=== PATIENT | female | born 1945 | race Caucasian/White ===

== ENCOUNTER 2021-05-09 07:58 | Outpatient (REF) | payer MEDICARE, SELFPAY ==
--- NOTE | ~2021-05-09 | XR_ITS ---
EXAMINATION: XR LUMBAR SPINE. XR PELVIS. CLINICAL INFORMATION: Lumbago with sciatica COMPARISON: None TECHNIQUE: AP radiograph of the pelvis. 3 views of the lumbar spine FINDINGS: Normal lumbar lordosis with slight anterolisthesis of L4-L5. Moderate degenerative disc disease throughout the lumbar spine and diffuse facet arthropathy. No acute fracture or suspicious bone lesion. Degenerative sclerosis of the pubic symphysis. 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 No fracture. XR/XR pelvis 1-2V IMPRESSION: Moderate multilevel degenerative disc disease of the lumbar spine with grade 1 anterolisthesis of L4-L5 where there is prominent facet arthropathy. Mild to moderate degenerative changes of the sacroiliac joints, hip joints, and pubic symphysis which appears symmetric. No acute osseous abnormality.
--- NOTE | ~2021-05-09 | XR_ITS ---
EXAMINATION: XR LUMBAR SPINE. XR PELVIS. CLINICAL INFORMATION: Lumbago with sciatica COMPARISON: None TECHNIQUE: AP radiograph of the pelvis. 3 views of the lumbar spine FINDINGS: Normal lumbar lordosis with slight anterolisthesis of L4-L5. Moderate degenerative disc disease throughout the lumbar spine and diffuse facet arthropathy. No acute fracture or suspicious bone lesion. Degenerative sclerosis of the pubic symphysis. 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 No fracture. XR/XR lumbar spine 2-3V IMPRESSION: Moderate multilevel degenerative disc disease of the lumbar spine with grade 1 anterolisthesis of L4-L5 where there is prominent facet arthropathy. Mild to moderate degenerative changes of the sacroiliac joints, hip joints, and pubic symphysis which appears symmetric. No acute osseous abnormality.
[2021-05-09 08:21] LABS: MANUAL DIFF FLAG NO
[2021-05-09 08:55] LABS: Basophils Absolute Auto 0.1 X10*3/uL (0.0-0.2); Basophils Percent Auto 0.6 % (0-2); Eosinophils Absolute Auto 0.1 X10*3/uL (0.0-0.4); Eosinophils Percent Auto 1.7 % (0-4); Hematocrit 42.2 % (37.0-47.0); Hemoglobin 13.7 g/dl (12.0-16.0); Imm Gran Abs Auto 0.04 X10*3/uL (0.00-0.03); Imm Gran Pct Auto 0.5 % (0.0-0.4); Lymphocytes Absolute Auto 1.7 X10*3/uL (1.2-4.9); Lymphocytes Percent Auto 22.1 % (20-40); Mean Corpuscular HGB Conc 32.5 g/dl (31.0-35.0); Mean Corpuscular Volume 95.5 fL (80.0-98.0); Mean Platelet Volume 10.3 fL (9.4-12.3); Monocytes Absolute Auto 0.7 X10*3/uL (0.1-1.2); Neutrophils Absolute Auto 5.1 x10*3/uL (2.0-8.3); Neutrophils Percent Auto 66.1 % (45-73); Platelet Count 228 X10*3/uL (160-400); Red Blood Count 4.42 X10*6/uL (4.20-5.50); Red Cell Distribution Width 11.8 % (11.0-16.0); White Blood Count 7.7 X10*3/uL (4.8-10.8)
[2021-05-09 09:32] LABS: Alanine Aminotransferase 17 U/L (0-31); Albumin Level 4.3 g/dL (3.5-5.0); Alkaline Phosphatase 67 U/L (39-117); Anion Gap 12 (12-20); Aspartate Amino Transferase 20 U/L (5-31); Bilirubin Total 0.3 mg/dL (0.0-1.0); Blood Urea Nitrogen 18 mg/dL (9-16); Calcium 8.7 mg/dL (8.4-10.2); Carbon Dioxide 29 mmol/L (22-29); Chloride 101 mmol/L (96-108); Cholesterol 218 mg/dL; Estimated Glomerular Filt Rate > 60; Glucose Random 87 mg/dL (60-115); HDL Cholesterol 55 mg/dL; LDL Cholesterol Calculated 138 mg/dl; Potassium 4.6 mmol/L (3.3-5.1); Sodium 137 mmol/L (135-145); Total Protein 7.1 g/dL (6.5-8.0); Triglycerides 129 mg/dL
[2021-05-09 09:44] LABS: Free T4 (Free Thyroxine) 1.35 ng/dL (0.71-1.85); Thyroid Stimulating Hormone 1.32 uIU/mL (0.32-4.0); Vitamin D 25-OH Total 28.4 ng/mL (>30)
[2021-05-09 11:06] LABS: Erythrocyte Sedimentation Rate 12 MM/HR (0-20)
== END 2021-05-09 07:59 | disposition home or self-care (01) ==
LOC: HO.XRAY 07:58
PROVIDERS: PCP Internal Medicine; Visit Provider Internal Medicine
DX: E78.00 Pure hypercholesterolemia, unspecified (principal); E03.9 Hypothyroidism, unspecified; E55.9 Vitamin D deficiency, unspecified; I10 Essential (primary) hypertension; M54.42 Lumbago with sciatica, left side
CPT/HCPCS: 36415; 72100; 72170; 80053; 80061; 82306; 84439; 84443; 85025; 85652

== ENCOUNTER 2021-05-11 10:16 | Outpatient (REF) | payer MEDICARE, SELFPAY ==
[2021-05-11 10:26] LABS: Appearance Urine CLEAR; Color Urine YELLOW; Glucose Urine UA NEG (NEG); Leukocyte Esterase Urine NEG (NEG); Nitrite Urine NEG (NEG); PH 5.5 (5.0-8.0); UACC Culture Trigger NO; Urine Blood 1+ (NEG); Urine Ketones NEG (NEG); Urine Protein NEG (NEG-TRACE)
[2021-05-11 10:36] LABS: RBC Urine 0-2 /HPF (0); Squamous Epithelial Cell Urine TRACE /LPF; WBC Urine 0 /HPF (0-4)
== END 2021-05-11 10:17 | disposition home or self-care (01) ==
LOC: HO.LNP 10:16
PROVIDERS: Visit Provider Internal Medicine
DX: R03.0 Elevated blood-pressure reading, without diagnosis of hypertension (principal)
CPT/HCPCS: 81001

== ENCOUNTER 2022-09-09 06:21 | Outpatient (REF) | payer MEDICARE, SELFPAY ==
--- NOTE | ~2022-09-09 | XR_ITS ---
EXAMINATION: XR ABDOMEN COMPLETE CLINICAL INDICATION: R19.5 - Other fecal abnormalities COMPARISON: Lumbar and pelvic radiographs 05/09/2021. TECHNIQUE: The abdomen is imaged in 3 views, supine AP x2, upright AP. FINDINGS: There is no obstruction, differential air-fluid levels, or free air. No gaseous dilatation of bowel or abnormal collections of gas. There is moderate stool in the proximal to mid right colon. Lung bases are clear. There are no visible urinary tract calculi. Degenerative changes are present lumbosacral spine and hips. Mild osteitis pubis. XR/XR abdomen 3V IMPRESSION: Moderate stool proximal to mid right colon. No obstruction or abnormal collections of gas.
[2022-09-09 06:34] LABS: MANUAL DIFF FLAG NO
[2022-09-09 07:59] LABS: Basophils Absolute Auto 0.1 X10*3/uL (0.0-0.2); Basophils Percent Auto 0.8 % (0-2); Eosinophils Absolute Auto 0.2 X10*3/uL (0.0-0.4); Eosinophils Percent Auto 2.4 % (0-4); Hematocrit 44.3 % (37.0-47.0); Hemoglobin 14.5 g/dl (12.0-16.0); Imm Gran Abs Auto 0.02 X10*3/uL (0.00-0.03); Imm Gran Pct Auto 0.3 % (0.0-0.4); Lymphocytes Absolute Auto 2.3 X10*3/uL (1.2-4.9); Lymphocytes Percent Auto 37.3 % (20-40); Mean Corpuscular HGB Conc 32.7 g/dl (31.0-35.0); Mean Corpuscular Hemoglobin 31.7 pg (27.0-33.0); Mean Corpuscular Volume 96.7 fL (80.0-98.0); Mean Platelet Volume 10.2 fL (9.4-12.3); Monocytes Absolute Auto 0.5 X10*3/uL (0.1-1.2); Monocytes Percent Auto 7.5 % (2-11); Neutrophils Absolute Auto 3.2 x10*3/uL (2.0-8.3); Neutrophils Percent Auto 51.7 % (45-73); Platelet Count 219 X10*3/uL (160-400); Red Blood Count 4.58 X10*6/uL (4.20-5.50); Red Cell Distribution Width 11.8 % (11.0-16.0); White Blood Count 6.2 X10*3/uL (4.8-10.8)
[2022-09-09 08:01] LABS: Appearance Urine Clear; Color Urine Yellow; Glucose Urine UA Negative (Negative); Leukocyte Esterase Urine Small (1+) (Negative); Nitrite Urine Negative (Negative); Specific Gravity - Urine 1.015 (1.005-1.025); UMIC TRIGGER UACC YES; Urine Blood Moderate (2+) (Negative); Urine Ketones Negative (Negative); Urine Protein Negative (Neg-Trace)
[2022-09-09 08:16] LABS: Bacteria Urine None Seen (None Seen); Hyaline Casts Urine 0-2 /LPF (0-2); RBC Urine >20 /HPF (0-2); Squamous Epithelial Cell Urine 0-2 /HPF (0-2); UACC Culture Trigger YES; WBC Urine 0-5 /HPF (0-5)
[2022-09-09 08:40] LABS: Alanine Aminotransferase 12 U/L (0-31); Albumin Level 4.1 g/dL (3.5-5.0); Alkaline Phosphatase 69 U/L (39-117); Anion Gap 12 (12-20); Aspartate Amino Transferase 21 U/L (5-31); Bilirubin Total 0.5 mg/dL (0.0-1.0); Blood Urea Nitrogen 13 mg/dL (9-16); Calcium 9.1 mg/dL (8.4-10.2); Carbon Dioxide 31 mmol/L (22-29); Chloride 103 mmol/L (96-108); Cholesterol 229 mg/dL; Estimated Glomerular Filt Rate > 60; Glucose Fasting 83 mg/dL (60-99); HDL Cholesterol 58 mg/dL; LDL Cholesterol Calculated 153 mg/dl; Potassium 4.1 mmol/L (3.3-5.1); Sodium 142 mmol/L (135-145); Total Protein 6.6 g/dL (6.5-8.0); Triglycerides 91 mg/dL
[2022-09-09 09:00] LABS: Free T4 (Free Thyroxine) 1.35 ng/dL (0.71-1.85); Thyroid Stimulating Hormone 0.82 uIU/mL (0.32-4.0); Vitamin D 25-OH Total 38.3 ng/mL (>30)
== END 2022-09-09 06:22 | disposition home or self-care (01) ==
LOC: HO.LAB 06:21
PROVIDERS: PCP Internal Medicine; Visit Provider Internal Medicine
DX: E03.9 Hypothyroidism, unspecified (principal); E78.00 Pure hypercholesterolemia, unspecified; R03.0 Elevated blood-pressure reading, without diagnosis of hypertension; E55.9 Vitamin D deficiency, unspecified; R14.0 Abdominal distension (gaseous); R19.5 Other fecal abnormalities; R82.90 Unspecified abnormal findings in urine
CPT/HCPCS: 36415; 74021; 80053; 80061; 81001; 81003; 82306; 84439; 84443; 85025; 87086

== ENCOUNTER → 2022-10-24 08:50 | Outpatient (BNVA) | payer MEDICARE, SELFPAY | PROVIDERS: PCP Internal Medicine; Visit Provider Nurse Practitioner Family | DX: Z12.11 Encounter for screening for malignant neoplasm of colon (principal); K59.01 Slow transit constipation | CPT/HCPCS: 99202 ==

== ENCOUNTER 2022-12-13 17:31 | Outpatient (REF) | payer MEDICARE, SELFPAY | END 2022-12-13 17:32 | disposition home or self-care (01) | LOC: HO.LNP 17:31 | PROVIDERS: Visit Provider Internal Medicine | DX: N39.0 Urinary tract infection, site not specified (principal); R30.0 Dysuria | CPT/HCPCS: 87086; 87088; 87186 ==

== ENCOUNTER 2023-03-21 13:09 | Outpatient (AMB) | payer MEDICARE, SELFPAY ==
[2023-03-21 13:12] VITALS: BP 132/84; PULSE 81; O2SAT 97; BMI 24.7
--- NOTE | 2023-03-21 13:12 | MHC.PC.OV ---
Vital Signs 03/21/23 13:12 Height 5 ft 4 in Weight 144 lb BMI 24.7 BP 132/84 Blood Pressure Location Lt brachial Position Sitting Pulse 81 Pulse Source Pulse Oximeter Pulse Oximetry (%) 97 Oxygen Delivery Method Room Air Intake Visit Reasons: follow up/colonoscopy Irs Agent Required: No Accompanied by: Self / Same As Patient Allergies codeine [CODEINE] Adverse Reaction (Intermediate, Verified 03/21/23 14:09) NAUSEA & VOMITING Medication List - Last Reconciled 03/21/23 by Saúl Del Castillo MD bisacodyl (Dulcolax (bisacodyl)) 10 mg (2 x 5 mg) PO ONCE 1 day cholecalciferol (vitamin D3) 50 mcg PO DAILY metronidazole 0.75% 1 appl topical BID 10 days polyethylene glycol 3350 (Miralax) 238 grams PO ONCE 1 day psyllium husk (Metamucil) 0.5 tbsp PO DAILY Synthroid (levothyroxine) 112 mcg PO DAILY 90 days NS Tobacco use date assessed: 03/21/23 Fall risk assessment: No Falls in past year Last assessed Fall Risk: 03/21/23 Dental Screening Dental Screen Date: 03/21/23 Did you have a dental visit in the last 12 months?: Yes Did you have a dental problem in the last 6 months where you did not have access to dental care?: No Was dental information given to patient?: Patient has dentist HPI follow up/colonoscopy HPI Details Patient comes in today mainly to seek help and clarification of what she feels are very confusing instructions for her colonoscopy prep for 04/17/2023 States that the instructions she was given appear to start 1 week before her procedure date She started reading the instructions and finds all of them too confusing and anxiety-inducing and as a result, cannot seem to understand that most of the instructions that started a week before are mostly recommendations on how to start adjusting her diet gradually in preparation for her procedure and that the actual prep (medications) are not to be taken until the day before her procedure She appears quite upset and anxious and states that she does not remember having to do this much when she last had her procedure over 20 years ago and is even considering just canceling the colonoscopy itself States that she even tried calling around to different gastroenterologists in the area and asked about their prep procedure and found out that none of them were this complicated States that she is still experiencing recurrent constipation and on and off left-sided abdominal pain She denies any fever, headaches or dizziness Denies any chest pains, no SOB No nausea/vomiting and denies any acute urinary symptoms PFSH Medical History White coat syndrome without hypertension Left-sided low back pain with sciatica Overweight (BMI 25.0-29.9) Elevated blood pressure reading Pure hypercholesterolemia Acquired hypothyroidism Surgical History Hx of colonoscopy History of section Family History Father No problems noted. Mother No problems noted. Social History Housing: House Alcohol intake: never Patient Tobacco Use Status: Never used Tobacco e-Cigarette/Vaping Use: Never Used Second Hand Smoke Exposure: No service: No Current occupational status: retired Cognitive needs: No Hearing needs: No Vision needs: Yes Questionnaire PHQ-9 Over the last 2 weeks, how often have you been bothered by any of the following problems? 1. Little interest or pleasure in doing things: not at all 2. Feeling down, depressed, or hopeless: not at all 3. Trouble falling or staying asleep, or sleeping too much: not at all 4. Feeling tired or having little energy: not at all 5. Poor appetite or overeating: not at all 6. Feeling bad about yourself - or that you are a failure or have let yourself or your family down: not at all 7. Trouble concentrating on things, such as reading the newspaper or watching television: not at all 8. Moving or speaking so slowly that other people could have noticed. Or the opposite - being so fidgety or restless that you have been moving around a lot more than usual: not at all 9. Thoughts that you would be better off or of hurting yourself in some way: not at all Total score: 0 Depression Screening Interpretation: Negative Depression Screening Done: Yes 60728 - PHQ-9 Billing: Yes Source: Developed by Drs. Arnoldo Snider, Marcus Lisa and colleagues, with an educational maryam from [employer]. Thrive Questionnaire Date Thrive assessed: 03/21/23 I am a: Patient What is your living situation today?: I have a steady place to live Within the past 12 months, did the food you bought not last and you didn't have the money to get more?: Never true Within the past 12 months, did you worry whether your food would run out before you got money to buy more?: Never true Do you have trouble paying for medicines?: No Do you have trouble getting transportation to medical appointments?: No Do you have trouble paying your heating and electricity bill?: No Do you have trouble taking care of your child, family member or friend?: No Do you have trouble with day-to-day activities such as bathing, preparing meals, shopping, managing finances, etc.?: No Are you currently unemployed and looking for a job?: No Are you interested in more education?: No Please select the resources that you would like help with: None Currently or been in a relationship where the following occur: no concerns reported AUDIT C Alcohol Use Questionnaire (AUDIT-C) 1. How often do you have a drink containing alcohol?: Never 3. How often do you have six or more drinks on one occasion?: Never Total Score: 0 Score Reviewed/Action Taken: Yes QUINTIN-7 AMB Questionnaire QUINTIN-7 Date QUINTIN - 7 assessed: 03/21/23 Feeling nervous, anxious, or on edge: 0 = Not at all Not being able to stop or control worryin = Not at all Worrying too much about different things: 0 = Not at all Trouble relaxin = Not at all Being so restless that it is hard to sit still: 0 = Not at all Becoming easily annoyed or irritable: 0 = Not at all Feeling afraid as if something awful might happen: 0 = Not at all Total QUINTIN-7 score (0-4 normal; 5-9 mild; 10-14 moderate; 15-21 severe): 0 Source: Developed by Drs. Arnoldo Snider, Marcus Lisa and colleagues, with an educational maryam from [employer]. Review of Systems Const Denies fever(s) and Denies headache(s) ENT Denies dysphagia, Denies dizziness, Denies headache(s), Denies odynophagia and Denies sore throat Card Denies chest pain and Denies dyspnea Resp Denies cough and Denies dyspnea GI Reports abdominal pain (on and off, mostly on the left side), Reports constipation, Denies dysphagia, Denies heartburn, Denies diarrhea, Denies nausea, Denies odynophagia and Denies vomiting Denies difficulty voiding, Denies nocturia and Denies dysuria Neuro Denies dizziness and Denies headache(s) Psych Reports anxiety Physical exam (Primary Care) Vital Signs: Last Vital Signs Pulse 81 03/21/23 13:12 BP 132/84 03/21/23 13:12 Pulse Ox 97 03/21/23 13:12 Oxygen Delivery Method Room Air 03/21/23 13:12 BMI result Body Mass Index 24.7 Tobacco/Smoking Status: Tobacco use Status Tobacco use date assessed 03/21/23 03/21/23 13:20 Patient Tobacco Use Status Never used Tobacco 03/21/23 13:20 e-Cigarette/Vaping Use Never Used 03/21/23 13:20 PHQ-9: PHQ-9 Score PHQ-9: Total score 0 03/21/23 13:20 Depression Screening Interpretation: Negative Thrive Assessment: Date of Thrive Assessment Date Thrive assessed 03/21/23 03/21/23 13:20 Currently or been in a relationship where the following occur: no concerns reported Const General: no acute distress and alert Neck Neck: Yes no lymphadenopathy and Yes supple Resp Auscultation: clear to auscultation bilaterally, no rales and no wheezes Cardio Rate: regular rate Rhythm: regular rhythm Heart sounds: no murmurs GI Palpation (GI): Soft to palpation, Tenderness to palpation present (GI) (mild, mostly on the left side of the abdomen) and no guarding Auscultation: normal bowel sounds Extrem General: Yes no clubbing, cyanosis or edema Assessment and Plan Assessment & Plan (1) Left sided abdominal pain: Code(s): R10.9 - Unspecified abdominal pain Plan: She is advised again that her recurrent abdominal pain is most likely due to constipation Abdominal x-rays done a few months ago revealed (+) moderate stool in the colon Is encouraged to increase her oral fluids and dietary fiber (2) Change in stool caliber: Code(s): R19.5 - Other fecal abnormalities Plan: She is currently scheduled for colonoscopy on 04/17/23 and presently appears very upset, flustered and anxious about what she feels are very confusing and difficult to understand prep instructions that starts out about 1 week before her procedure Have discussed this with patient but she continues to appear very flustered and upset as to why this has to start 1 week before her colonoscopy when some of the other specialists she asked regarding this do not seem to have this issue and all of their prep instructions only start the day before Have advised patient that I will help her simplify this then to help came her nerves down - advised that the only things she needs to remember then are: 1. Nothing to eat or drink starting at 12 noon of the day before the procedure except for clear fluids (including water and clear broth) and jello 2. Start taking 2 tablets of Dulcolax at 2 pm that afternoon, then start drinking 1 glass of the Miralax prep every 30 to 60 minutes until the bottle is completely finished 3. Present to the hospital the next day for her colonoscopy. Is reminded to make sure she has a jitney driver (she cannot drive herself) and to arrive a little earlier to provide some time to fill out any necessary paperworks Plan Discussed that hopefully, simplifying her instructions this way will help resolve a lot of the anxiety, frustration and apparent irritation that she has been harboring over the past week or so about this and that she can then proceed with her colonoscopy as planned smoothly Follow up as scheduled in May 2023 Coding Level of Care Code Est Pt Level 3 (21021) Diagnoses Left sided abdominal pain R10.9 Change in stool caliber R19.5
== END 2023-03-21 14:10 | disposition home or self-care (01) ==
PROVIDERS: PCP Internal Medicine; Visit Provider Internal Medicine
DX: R10.9 Unspecified abdominal pain (principal); R19.5 Other fecal abnormalities
CPT/HCPCS: 99213

== ENCOUNTER 2023-05-15 06:59 | Outpatient (REF) | payer MEDICARE, SELFPAY ==
[2023-05-15 07:19] LABS: MANUAL DIFF FLAG NO
[2023-05-15 07:48] LABS: Basophils Absolute Auto 0.1 X10*3/uL (0.0-0.2); Basophils Percent Auto 0.8 % (0-2); Eosinophils Absolute Auto 0.1 X10*3/uL (0.0-0.4); Eosinophils Percent Auto 1.7 % (0-4); Hematocrit 43.7 % (37.0-47.0); Hemoglobin 14.2 g/dl (12.0-16.0); Imm Gran Abs Auto 0.03 X10*3/uL (0.00-0.03); Imm Gran Pct Auto 0.5 % (0.0-0.4); Lymphocytes Absolute Auto 1.9 X10*3/uL (1.2-4.9); Lymphocytes Percent Auto 29.1 % (20-40); Mean Corpuscular HGB Conc 32.5 g/dl (31.0-35.0); Mean Corpuscular Volume 95.4 fL (80.0-98.0); Mean Platelet Volume 9.9 fL (9.4-12.3); Monocytes Absolute Auto 0.5 X10*3/uL (0.1-1.2); Neutrophils Percent Auto 59.9 % (45-73); Platelet Count 225 X10*3/uL (160-400); Red Blood Count 4.58 X10*6/uL (4.20-5.50); Red Cell Distribution Width 11.8 % (11.0-16.0); White Blood Count 6.6 X10*3/uL (4.8-10.8)
[2023-05-15 07:50] LABS: Appearance Urine Clear; Color Urine Yellow; Glucose Urine UA Negative (Negative); Leukocyte Esterase Urine Moderate (2+) (Negative); Nitrite Urine Negative (Negative); PH 6.5 (5.0-9.0); UMIC TRIGGER UACC YES; Urine Blood Moderate (2+) (Negative); Urine Ketones Negative (Negative); Urine Protein Negative (Neg-Trace)
[2023-05-15 07:59] LABS: Bacteria Urine None Seen (None Seen); Hyaline Casts Urine 0-2 /LPF (0-2); Squamous Epithelial Cell Urine 0-2 /HPF (0-2); UACC Culture Trigger YES
[2023-05-15 08:32] LABS: Alanine Aminotransferase 14 U/L (0-31); Albumin Level 4.1 g/dL (3.5-5.0); Alkaline Phosphatase 65 U/L (39-117); Anion Gap 12 (12-20); Aspartate Amino Transferase 21 U/L (5-31); Bilirubin Total 0.4 mg/dL (0.0-1.0); Blood Urea Nitrogen 15 mg/dL (9-16); Calcium 9.4 mg/dL (8.4-10.2); Carbon Dioxide 30 mmol/L (22-29); Chloride 102 mmol/L (96-108); Cholesterol 233 mg/dL (<200); Estimated Glomerular Filt Rate > 60; Glucose Fasting 93 mg/dL (60-99); HDL Cholesterol 64 mg/dL (>40); LDL Cholesterol Calculated 157 mg/dL (<100); Potassium 3.8 mmol/L (3.3-5.1); Sodium 140 mmol/L (135-145); Total Protein 7.3 g/dL (6.5-8.0); Triglycerides 63 mg/dL (<150)
[2023-05-15 08:38] LABS: Free T4 (Free Thyroxine) 1.15 ng/dL (0.71-1.85); Vitamin D 25-OH Total 36.8 ng/mL (>30)
[2023-05-16 09:10] LABS: Urine Cytology See Pathology rpt
== END 2023-05-15 07:00 | disposition home or self-care (01) ==
LOC: HO.LAB 06:59
PROVIDERS: PCP Internal Medicine; Visit Provider Internal Medicine
DX: E03.9 Hypothyroidism, unspecified (principal); I10 Essential (primary) hypertension; E78.00 Pure hypercholesterolemia, unspecified; E55.9 Vitamin D deficiency, unspecified; R31.1 Benign essential microscopic hematuria
CPT/HCPCS: 36415; 80053; 80061; 81001; 82306; 84439; 84443; 85025; 87086; 88112

== ENCOUNTER 2023-05-20 09:19 | Outpatient (AMB) | payer MEDICARE, SELFPAY ==
[2023-05-20 09:21] VITALS: BP 152/90; PULSE 83; O2SAT 97; BMI 24.7
--- NOTE | 2023-05-20 09:21 | MHC.PC.OV ---
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 Accompanied by: Self / Same As Patient Allergies codeine [CODEINE] Adverse Reaction (Intermediate, Verified 05/20/23 10:02) NAUSEA & VOMITING Medication List - Last Reconciled 05/20/23 by Saúl Del Castillo MD bisacodyl (Dulcolax (bisacodyl)) 10 mg (2 x 5 mg) PO ONCE 1 day cholecalciferol (vitamin D3) 50 mcg PO DAILY metronidazole 0.75% 1 appl topical BID 10 days polyethylene glycol 3350 (Miralax) 238 grams PO ONCE 1 day psyllium husk (Metamucil) 0.5 tbsp PO DAILY Synthroid (levothyroxine) 112 mcg PO DAILY 90 days NS Tobacco use date assessed: 05/20/23 Fall risk assessment: No Falls in past year Last assessed Fall Risk: 05/20/23 Dental Screening Dental Screen Date: 05/20/23 Did you have a dental visit in the last 12 months?: Yes Did you have a dental problem in the last 6 months where you did not have access to dental care?: No Was dental information given to patient?: Patient has dentist HPI hyperlipidemia, hypothyroidism HPI Details Patient comes in today for her follow up visit States that she has been experiencing frequent/recurrent nasal and sinus congestion for the past few weeks States that she even went to a walk-in clinic a couple of weeks ago for the same complaints and was prescribed some Abx (Amoxicillin) and Cetirizine - states that she is almost finished with her Abx but does not feel that her Rx have helped at all Notes (+) sore throat at times but denies any fever - states that she gargles with some warm salt water when her throat starts acting up and finds that the salt water gargle helps a lot Denies any headaches or dizziness Denies any chest pains, no SOB No nausea/vomiting, no abdominal pain No change in bowel habits noted Had her follow up labs done last week - to discuss her results [facility] Medical History (Updated 05/20/23 @ 10:20 by Saúl Del Castillo MD) White coat syndrome without hypertension Left-sided low back pain with sciatica Overweight (BMI 25.0-29.9) Pure hypercholesterolemia Acquired hypothyroidism Surgical History Hx of colonoscopy History of section Family History Father No problems noted. Mother No problems noted. Social History Housing: House Alcohol intake: never Patient Tobacco Use Status: Never used Tobacco e-Cigarette/Vaping Use: Never Used Second Hand Smoke Exposure: No service: No Current occupational status: retired Cognitive needs: No Hearing needs: No Vision needs: Yes Questionnaire PHQ-9 Over the last 2 weeks, how often have you been bothered by any of the following problems? 1. Little interest or pleasure in doing things: not at all 2. Feeling down, depressed, or hopeless: not at all 3. Trouble falling or staying asleep, or sleeping too much: not at all 4. Feeling tired or having little energy: not at all 5. Poor appetite or overeating: not at all 6. Feeling bad about yourself - or that you are a failure or have let yourself or your family down: not at all 7. Trouble concentrating on things, such as reading the newspaper or watching television: not at all 8. Moving or speaking so slowly that other people could have noticed. Or the opposite - being so fidgety or restless that you have been moving around a lot more than usual: not at all 9. Thoughts that you would be better off or of hurting yourself in some way: not at all Total score: 0 Depression Screening Interpretation: Negative Depression Screening Done: Yes 25769 - PHQ-9 Billing: Yes Source: Developed by Drs. Arnoldo Snider, Kera Alonzo, Marcus Mullen and colleagues, with an educational maryam from [employer]. Thrive Questionnaire Date Thrive assessed: 05/20/23 I am a: Patient What is your living situation today?: I have a steady place to live Within the past 12 months, did the food you bought not last and you didn't have the money to get more?: Never true Within the past 12 months, did you worry whether your food would run out before you got money to buy more?: Never true Do you have trouble paying for medicines?: No Do you have trouble getting transportation to medical appointments?: No Do you have trouble paying your heating and electricity bill?: No Do you have trouble taking care of your child, family member or friend?: No Do you have trouble with day-to-day activities such as bathing, preparing meals, shopping, managing finances, etc.?: No Are you currently unemployed and looking for a job?: No Are you interested in more education?: No Please select the resources that you would like help with: None Currently or been in a relationship where the following occur: no concerns reported AUDIT C Alcohol Use Questionnaire (AUDIT-C) 1. How often do you have a drink containing alcohol?: Never 3. How often do you have six or more drinks on one occasion?: Never Total Score: 0 Score Reviewed/Action Taken: Yes QUINTIN-7 AMB Questionnaire QUINTIN-7 Date QUINTIN - 7 assessed: 05/20/23 Feeling nervous, anxious, or on edge: 0 = Not at all Not being able to stop or control worryin = Not at all Worrying too much about different things: 0 = Not at all Trouble relaxin = Not at all Being so restless that it is hard to sit still: 0 = Not at all Becoming easily annoyed or irritable: 0 = Not at all Feeling afraid as if something awful might happen: 0 = Not at all Total QUINTIN-7 score (0-4 normal; 5-9 mild; 10-14 moderate; 15-21 severe): 0 Source: Developed by Drs. Arnoldo Snider, Kera Alonzo, Marcus Mullen and colleagues, with an educational maryam from [employer]. Review of Systems Const Denies chills, Denies fever(s) and Denies headache(s) ENT Denies dysphagia, Denies dizziness, Denies otalgia, Denies headache(s), Reports nasal congestion (recurrent/frequent lately), Reports nasal discharge (at times, mostly clear), Denies neck pain, Denies odynophagia, Denies sinus pain, Reports sinus pressure (at times, mild) and Reports sore throat (on and off, mostly mild) Card Denies chest pain and Denies dyspnea Resp Denies chest congestion, Denies cough, Denies dyspnea and Denies wheezing GI Denies abdominal pain, Reports constipation (on and off), Denies dysphagia, Denies heartburn, Denies diarrhea, Denies nausea, Denies odynophagia and Denies vomiting Denies difficulty voiding, Denies nocturia, Denies dysuria and Denies urinary urgency Musc Denies back pain, Denies arthralgias and Denies neck pain Skin/Breast Denies rash Neuro Denies dizziness and Denies headache(s) Psych Reports anxiety Aller/Immun Denies wheezing Physical exam (Primary Care) Vital Signs: Last Vital Signs Pulse 83 05/20/23 09:21 BP 152/90 H 05/20/23 09:21 Pulse Ox 97 05/20/23 09:21 Oxygen Delivery Method Room Air 05/20/23 09:21 BMI result Body Mass Index 24.7 Tobacco/Smoking Status: Tobacco use Status Tobacco use date assessed 05/20/23 05/20/23 09:28 Patient Tobacco Use Status Never used Tobacco 05/20/23 09:28 e-Cigarette/Vaping Use Never Used 05/20/23 09:28 PHQ-9: PHQ-9 Score PHQ-9: Total score 0 05/20/23 09:28 Depression Screening Interpretation: Negative Thrive Assessment: Date of Thrive Assessment Date Thrive assessed 05/20/23 05/20/23 09:28 Currently or been in a relationship where the following occur: no concerns reported Const General: no acute distress and alert HENMT Ears: TM's normal bilaterally and EAC's normal General nose exam: Nasal discharge present (minimal) clear Face and sinus: Yes sinuses nontender Throat: Yes posterior oropharynx normal and Yes tonsils normal Neck Neck: Yes no lymphadenopathy and Yes supple Resp Auscultation: clear to auscultation bilaterally, no rales and no wheezes Cardio Rate: regular rate Rhythm: regular rhythm Heart sounds: no murmurs GI Palpation (GI): Soft to palpation, nontender and no guarding Auscultation: normal bowel sounds Skin Rashes: no rashes Extrem General: Yes no clubbing, cyanosis or edema Results Reviewed Results Reviewed: Laboratory Tests 11/30/23 11/30/23 07:16 07:18 WBC 6.6 Hgb 14.2 Hct 43.7 Plt Count 225 Sodium 140 Potassium 3.8 Creatinine 0.73 Estimated GFR > 60 Fasting Glucose 93 Calcium 9.4 AST 21 ALT 14 Triglycerides 63 Cholesterol 233 H LDL Cholesterol, Calc 157 H HDL Cholesterol 64 25-OH Vitamin D Total 36.8 TSH 1.70 Free T4 1.15 Ur Specific Johnson 1.020 Urine Protein Negative Urine Glucose (UA) Negative Urine Blood Moderate (2+) H Assessment and Plan Assessment & Plan (1) White coat syndrome without hypertension: Code(s): R03.0 - Elevated blood-pressure reading, without diagnosis of hypertension Plan: Her BP in the office today is again elevated but her home BP log shows systolic BP readings ranging from 113 mm to 131 mm, consistent with white coat hypertension Reinforced low sodium diet Patient is instructed to continue monitoring her blood pressure regularly (2) Pure hypercholesterolemia: Code(s): E78.00 - Pure hypercholesterolemia, unspecified Plan: Results of her labs done last week reviewed and discussed with patient - cautioned that her cholesterol levels were still elevated and have increased from her previous numbers (LDL is at 157, total cholesterol is at 233) Reinforced low cholesterol diet - patient states that she previously switched over to a Mediterranean-type diet to hopefully help her get her cholesterol numbers down significantly but admits to poor compliance with her diet lately and she will try to get back on track with her diet Will recheck her labs and fasting lipids in 6 months for follow-up (3) Acquired hypothyroidism: Code(s): E03.9 - Hypothyroidism, unspecified Plan: TFTs were normal on her recent labs Continue Synthroid 112 mcg QD Will recheck her TFTs in 6 months for follow up (4) Left-sided low back pain with sciatica: Code(s): M54.42 - Lumbago with sciatica, left side Qualifiers: Chronicity: unspecified Sciatica laterality: sciatica of left side Qualified Code(s): M54.42 - Lumbago with sciatica, left side Plan: Lumbar spine x-rays done back in April 2021 revealed (+) 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 Have recommended referral to physical therapy for her left-sided sciatica and discussed potential need for referral to neurosurgery but she declined referrals previously and stated that she will call for referrals when she feels she needs them Reinforced activity and weight lifting restrictions - states that her low back pain has actually subsided since and are not bothering her too much lately (5) Rhinitis: Code(s): J31.0 - Chronic rhinitis Qualifiers: Rhinitis type: unspecified Qualified Code(s): J31.0 - Chronic rhinitis Plan: Advised that her recent nasal and sinus symptoms are most likely due to rhinitis, which is from a combination of indoor allergies as well as cold-air rhinitis that is common at this time of year Advised that she can continue on OTC Cetirizine 10 mg QD if she wants but will also her her try Fluticasone 50 mcg nasal spray QD PRN - advised that she can use both oral Cetirizine and her nasal spray if she wants to Have also advised her to continue using OTC Saline nasal spray PRN, which she is already using Plan Follow up in 6 months Orders: Orders Complete Blood Count Auto Diff 6 Months I10 - Essential (primary) hypertension Comprehensive [place]. Panel Fast 6 Months E78.00 - Pure hypercholesterolemia, unspecified Lipid Panel 6 Months E78.00 - Pure hypercholesterolemia, unspecified TSH reflex Free T4 6 Months E78.00 - Pure hypercholesterolemia, unspecified UA CC w/rflx Micro + Cult 6 Months R30.0 - Dysuria Vitamin D 25-OH Total 6 Months E55.9 - Vitamin D deficiency, unspecified Medications: New fluticasone propionate 50 mcg/actuation administer into each nostril 2 sprays intranasal DAILY 30 days PRN 16 grams 5RF allergy symptoms Coding Level of Care Code Est Pt Level 4 (18805) Diagnoses White coat syndrome without hypertension R03.0 Pure hypercholesterolemia E78.00 Acquired hypothyroidism E03.9 Left-sided low back pain with left-sided sciatica, unspecified chronicity M54.42 Chronicity: unspecified Sciatica laterality: sciatica of left side Rhinitis, unspecified type J31.0 Rhinitis type: unspecified
== END 2023-05-20 10:13 | disposition home or self-care (01) ==
PROVIDERS: PCP Internal Medicine; Visit Provider Internal Medicine
DX: R03.0 Elevated blood-pressure reading, without diagnosis of hypertension (principal); E78.00 Pure hypercholesterolemia, unspecified; E03.9 Hypothyroidism, unspecified; M54.42 Lumbago with sciatica, left side; J31.0 Chronic rhinitis
CPT/HCPCS: 99214

== ENCOUNTER 2023-10-22 13:43 | Outpatient (AMB) | payer MEDICARE, SELFPAY ==
[2023-10-22 13:43] VITALS: BP 148/74; PULSE 81; O2SAT 97; BMI 25.2
--- NOTE | 2023-10-22 13:43 | MHC.PC.OV ---
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 Allergies codeine [CODEINE] Adverse Reaction (Intermediate, Verified 10/22/23 14:14) NAUSEA & VOMITING Medication List - Last Reconciled 10/22/23 by Saúl Del Castillo MD bisacodyl (Dulcolax (bisacodyl)) 10 mg (2 x 5 mg) PO ONCE 1 day cholecalciferol (vitamin D3) 50 mcg PO DAILY fluticasone propionate 50 mcg/actuation 2 sprays intranasal DAILY PRN 30 days metronidazole 0.75% 1 appl topical BID 10 days polyethylene glycol 3350 (Miralax) 238 grams PO ONCE 1 day psyllium husk (Metamucil) 0.5 tbsp PO DAILY Synthroid (levothyroxine) 112 mcg PO DAILY 90 days NS Tobacco use date assessed: 10/22/23 Fall risk assessment: No Falls in past year Last assessed Fall Risk: 10/22/23 Dental Screening Dental Screen Date: 10/22/23 HPI Sinus HPI Details Patient comes in today complaining of increased nasal and sinus congestion often for the past few weeks now States that she has been taking OTC Mallory lately to help with her perceived allergy symptoms but feels that the Rx is not helping much States that she feels congested all the time, has a recurrent cough for a few weeks now and coughs up yellowish phlegm often Notes that she has also been hoarse at times lately and feels there is some congestion in her throat that she just can't seem to clear up She denies any fever, headaches or dizziness; throat feels slightly sore on and off lately Denies any chest pains, no increased SOB No nausea/vomiting, no abdominal pain No change in bowel habits noted [facility] Medical History White coat syndrome without hypertension Left-sided low back pain with sciatica Overweight (BMI 25.0-29.9) Pure hypercholesterolemia Acquired hypothyroidism Surgical History Hx of colonoscopy History of section Family History Father No problems noted. Mother No problems noted. Social History Housing: House Alcohol intake: never Patient Tobacco Use Status: Never used Tobacco e-Cigarette/Vaping Use: Never Used Second Hand Smoke Exposure: No service: No Current occupational status: retired Cognitive needs: No Hearing needs: No Vision needs: Yes Questionnaire PHQ-9 Over the last 2 weeks, how often have you been bothered by any of the following problems? 1. Little interest or pleasure in doing things: not at all 2. Feeling down, depressed, or hopeless: not at all 3. Trouble falling or staying asleep, or sleeping too much: not at all 4. Feeling tired or having little energy: not at all 5. Poor appetite or overeating: not at all 6. Feeling bad about yourself - or that you are a failure or have let yourself or your family down: not at all 7. Trouble concentrating on things, such as reading the newspaper or watching television: not at all 8. Moving or speaking so slowly that other people could have noticed. Or the opposite - being so fidgety or restless that you have been moving around a lot more than usual: not at all 9. Thoughts that you would be better off or of hurting yourself in some way: not at all Total score: 0 Depression Screening Interpretation: Negative Depression Screening Done: Yes 81688 - PHQ-9 Billing: Yes Source: Developed by Drs. Arnoldo Snider, Kera Alonzo, Marcus Mullen and colleagues, with an educational maryam from [employer]. Thrive Questionnaire Date Thrive assessed: 10/22/23 I am a: Patient What is your living situation today?: I have a steady place to live Within the past 12 months, did the food you bought not last and you didn't have the money to get more?: Never true Within the past 12 months, did you worry whether your food would run out before you got money to buy more?: Never true Do you have trouble paying for medicines?: No Do you have trouble getting transportation to medical appointments?: No Do you have trouble paying your heating and electricity bill?: No Do you have trouble taking care of your child, family member or friend?: No Do you have trouble with day-to-day activities such as bathing, preparing meals, shopping, managing finances, etc.?: No Are you currently unemployed and looking for a job?: No Are you interested in more education?: No Please select the resources that you would like help with: None Currently or been in a relationship where the following occur: no concerns reported THRIVE Score: 0 AUDIT C Alcohol Use Questionnaire (AUDIT-C) 1. How often do you have a drink containing alcohol?: Never 3. How often do you have six or more drinks on one occasion?: Never Total Score: 0 Score Reviewed/Action Taken: Yes QUINTIN-7 AMB Questionnaire QUINTIN-7 Date QUINTIN - 7 assessed: 10/22/23 Source: Developed by Drs. Arnoldo Snider, Kera Alonzo, Marcus Mullen and colleagues, with an educational maryam from [employer]. Review of Systems Const Denies chills, Reports fatigue, Denies fever(s) and Denies headache(s) ENT Denies dysphagia, Denies dizziness, Denies otalgia, Denies headache(s), Reports hoarseness (at times), Reports nasal congestion (frequent), Reports nasal discharge (occasionally; yellowish-tinged often), Denies neck pain, Denies odynophagia, Reports post nasal drip, Reports sinus pressure and Denies sore throat Card Denies chest pain, Denies palpitations and Denies dyspnea Resp Denies chest congestion, Reports cough (on and off; coughs up yellowish-tinged sputum frequently), Denies dyspnea and Denies wheezing GI Denies abdominal pain, Denies constipation, Denies dysphagia, Denies heartburn, Denies diarrhea, Denies nausea, Denies odynophagia and Denies vomiting Denies difficulty voiding, Denies nocturia, Denies dysuria and Denies urinary urgency Musc Denies neck pain Skin/Breast Denies rash Neuro Denies dizziness and Denies headache(s) Endo Reports fatigue and Denies palpitations Aller/Immun Denies wheezing Physical exam (Primary Care) Vital Signs: Last Vital Signs Pulse 81 10/22/23 13:43 BP 148/74 H 10/22/23 13:43 Pulse Ox 97 10/22/23 13:43 Oxygen Delivery Method Room Air 10/22/23 13:43 BMI result Body Mass Index 25.2 Tobacco/Smoking Status: Tobacco use Status Tobacco use date assessed 10/22/23 10/22/23 13:46 Patient Tobacco Use Status Never used Tobacco 10/22/23 13:46 e-Cigarette/Vaping Use Never Used 10/22/23 13:46 Depression Screening Interpretation: Negative Thrive Assessment: Date of Thrive Assessment Date Thrive assessed 10/22/23 10/22/23 13:46 Currently or been in a relationship where the following occur: no concerns reported Const General: no acute distress and alert HENMT Ears: TM's normal bilaterally and EAC's normal General nose exam: Abnormal mucous membranes and turbinates present boggy bilateral Face and sinus: Yes sinuses nontender Throat: Yes tonsils normal (no TP congestion) and Yes posterior oropharynx abnormal ((+) mild erythema) Neck Neck: Yes no lymphadenopathy and Yes supple Thyroid: Thyroid normal Resp Auscultation: clear to auscultation bilaterally, no rales and no wheezes Cardio Rate: regular rate Rhythm: regular rhythm Heart sounds: no murmurs GI Palpation (GI): Soft to palpation and nontender Auscultation: normal bowel sounds General: Yes no CVA tenderness Back/Spine/Pelvis Back: no CVA tenderness Skin Rashes: no rashes Extrem General: Yes no clubbing, cyanosis or edema Assessment and Plan Assessment & Plan (1) Upper respiratory tract infection: Code(s): J06.9 - Acute upper respiratory infection, unspecified Qualifiers: URI type: unspecified URI Qualified Code(s): J06.9 - Acute upper respiratory infection, unspecified Plan: (+) mild sinusitis Will start patient on Amoxicillin 500 mg Q 8 hours x 7 days She is advised to also continue taking her oral antihistamines daily as instructed (2) Allergic rhinitis: Code(s): J30.9 - Allergic rhinitis, unspecified Qualifiers: Allergic rhinitis trigger: unspecified Allergic rhinitis seasonality: unspecified Qualified Code(s): J30.9 - Allergic rhinitis, unspecified Plan: Continue OTC Fexofenadine 180 mg QD PRN but advised that if she finds that her allergy medication is no longer helping as much as it used to, she can try switching from one to another option (can pick between Loratadine 10 mg, Cetirizine 10 mg and Fexofenadine 180 mg) - reassured that all of these are mostly non-drowsy and should have very little effect on her blood pressure She is reminded that she can also try using OTC Fluticasone 50 mcg nasal spray QD PRN as well Continue OTC Saline nasal spray PRN also Plan Follow up as scheduled next month Medications: New amoxicillin 500 mg PO Q8H 7 days 21 tabs 0RF Coding Level of Care Code Est Pt Level 3 (94567) Diagnoses Upper respiratory tract infection, unspecified type J06.9 URI type: unspecified URI Allergic rhinitis, unspecified seasonality, unspecified trigger J30.9 Allergic rhinitis trigger: unspecified Allergic rhinitis seasonality: unspecified
== END 2023-10-22 14:20 | disposition home or self-care (01) ==
PROVIDERS: PCP Internal Medicine; Visit Provider Internal Medicine
DX: J06.9 Acute upper respiratory infection, unspecified (principal); J30.9 Allergic rhinitis, unspecified
CPT/HCPCS: 99213

== ENCOUNTER 2023-11-11 06:17 | Outpatient (REF) | payer MEDICARE, SELFPAY ==
[2023-11-11 06:38] LABS: MANUAL DIFF FLAG NO
[2023-11-11 08:03] LABS: Basophils Absolute Auto 0.1 X10*3/uL (0.0-0.2); Basophils Percent Auto 1.1 % (0-2); Eosinophils Absolute Auto 0.1 X10*3/uL (0.0-0.4); Eosinophils Percent Auto 2.3 % (0-4); Hematocrit 42.2 % (37.0-47.0); Hemoglobin 13.8 g/dl (12.0-16.0); Imm Gran Abs Auto 0.02 X10*3/uL (0.00-0.03); Imm Gran Pct Auto 0.4 % (0.0-0.4); Mean Corpuscular HGB Conc 32.7 g/dl (31.0-35.0); Mean Corpuscular Hemoglobin 31.3 pg (27.0-33.0); Mean Corpuscular Volume 95.7 fL (80.0-98.0); Mean Platelet Volume 10.4 fL (9.4-12.3); Monocytes Absolute Auto 0.6 X10*3/uL (0.1-1.2); Monocytes Percent Auto 9.9 % (2-11); Neutrophils Absolute Auto 2.8 x10*3/uL (2.0-8.3); Neutrophils Percent Auto 50.3 % (45-73); Platelet Count 206 X10*3/uL (160-400); Red Blood Count 4.41 X10*6/uL (4.20-5.50); Red Cell Distribution Width 11.9 % (11.0-16.0); White Blood Count 5.6 X10*3/uL (4.8-10.8)
[2023-11-11 08:04] LABS: Appearance Urine Clear; Color Urine Yellow; Glucose Urine UA Negative (Negative); Leukocyte Esterase Urine Small (1+) (Negative); Nitrite Urine Negative (Negative); Specific Gravity - Urine 1.015 (1.005-1.025); UMIC TRIGGER UACC YES; Urine Blood Moderate (2+) (Negative); Urine Ketones Negative (Negative); Urine Protein Negative (Neg-Trace)
[2023-11-11 08:20] LABS: Bacteria Urine None Seen (None Seen); Hyaline Casts Urine 0-2 /LPF (0-2); RBC Urine 0-2 /HPF (0-2); Squamous Epithelial Cell Urine 0-2 /HPF (0-2); UACC Culture Trigger YES; WBC Urine 0-5 /HPF (0-5)
[2023-11-11 08:41] LABS: Alanine Aminotransferase 14 U/L (0-31); Alkaline Phosphatase 64 U/L (39-117); Anion Gap 12 (12-20); Aspartate Amino Transferase 21 U/L (5-31); Bilirubin Total 0.5 mg/dL (0.0-1.0); Blood Urea Nitrogen 13 mg/dL (9-16); Calcium 9.1 mg/dL (8.4-10.2); Carbon Dioxide 29 mmol/L (22-29); Chloride 104 mmol/L (96-108); Cholesterol 209 mg/dL (<200); Estimated Glomerular Filt Rate > 60; Glucose Fasting 84 mg/dL (60-99); HDL Cholesterol 59 mg/dL (>40); LDL Cholesterol Calculated 137 mg/dL (<100); Sodium 141 mmol/L (135-145); Total Protein 6.9 g/dL (6.5-8.0); Triglycerides 68 mg/dL (<150)
[2023-11-11 08:59] LABS: TSH reflex Free T4 0.93 uIU/mL (0.32-4.0); Vitamin D 25-OH Total 33.1 ng/mL (>30)
== END 2023-11-11 06:18 | disposition home or self-care (01) ==
LOC: HO.LAB 06:17
PROVIDERS: PCP Internal Medicine; Visit Provider Internal Medicine
DX: I10 Essential (primary) hypertension (principal); E55.9 Vitamin D deficiency, unspecified; R30.0 Dysuria; E78.00 Pure hypercholesterolemia, unspecified
CPT/HCPCS: 36415; 80053; 80061; 81001; 81003; 82306; 84443; 85025; 87086

== ENCOUNTER 2023-11-24 10:00 | Outpatient (AMB) | payer MEDICARE, SELFPAY ==
--- NOTE | 2023-11-24 10:03 | MHC.PC.OV ---
Vital Signs 11/24/23 10:05 Height 5 ft 4 in Weight 145 lb 4 oz BMI 24.9 BP 132/70 Blood Pressure Location Lt brachial Position Sitting Pulse 82 Pulse Source Pulse Oximeter Pulse Oximetry (%) 97 Oxygen Delivery Method Room Air Intake Visit Reasons: hyperlipidemia,hypothyroidism,white coat HTN Intake Note: Patient is here to follow up on HLD, Hypothyroidism, white coat HTN. Environmental Associate Required: No Flake Miller Wheat And Oats: Not Required per policy Accompanied by: Self / Same As Patient Allergies codeine [CODEINE] Adverse Reaction (Intermediate, Verified 11/24/23 10:33) NAUSEA & VOMITING Medication List - Last Reconciled 11/24/23 by Saúl Del Castillo MD cholecalciferol (vitamin D3) 50 mcg PO DAILY metronidazole 0.75% 1 appl topical BID 10 days psyllium husk (Metamucil) 0.5 tbsp PO DAILY Synthroid (levothyroxine) 112 mcg PO DAILY 90 days NS Tobacco use date assessed: 11/24/23 Fall risk assessment: No Falls in past year Last assessed Fall Risk: 11/24/23 Dental Screening Dental Screen Date: 10/22/23 HPI hyperlipidemia,hypothyroidism,white coat HTN HPI Details Patient comes in today for her follow up visit States that she continues to experience recurrent nasal / sinus congestion and drainage and on and off cough and hoarseness States that she has tried a couple of the OTC antihistamines that we have recommended for her previously but states that aside from her Tylenol and Advil, she finds that none of the meds she has tried so far helped She was also prescribed some Amoxicillin previously but states that she ended up not taking it as she was concerned about taking Abx without a good reason for it She denies any fever or sore throat; denies any headaches or dizziness Denies any chest pains, no SOB No nausea/vomiting, no abdominal pain No change in bowel habits noted She had her follow up labs done a couple of weeks ago - to discuss her results Adds that she was recently ordered a Cologuard test kit by GI but she also decided NOT to do the test - feels that she is now 78 y/o old and does not wish to continue with colon cancer screening [facility] Medical History (Updated 11/24/23 @ 11:06 by Saúl Del Castillo MD) Vitamin D deficiency White coat syndrome without hypertension Left-sided low back pain with sciatica Overweight (BMI 25.0-29.9) Pure hypercholesterolemia Acquired hypothyroidism Surgical History Hx of colonoscopy History of section Family History Father No problems noted. Mother No problems noted. Social History Housing: House Alcohol intake: never Patient Tobacco Use Status: Never used Tobacco e-Cigarette/Vaping Use: Never Used Second Hand Smoke Exposure: No service: No Current occupational status: retired Cognitive needs: No Hearing needs: No Vision needs: Yes Questionnaire Thrive Questionnaire Date Thrive assessed: 10/22/23 QUINTIN-7 AMB Questionnaire QUINTIN-7 Date QUINTIN - 7 assessed: 10/22/23 Source: Developed by Drs. Arnoldo Snider, Kera Alonzo, Marcus Mullen and colleagues, with an educational maryam from [employer]. Review of Systems Const Denies chills, Reports fatigue, Denies fever(s) and Denies headache(s) ENT Denies dysphagia, Denies dizziness, Denies otalgia, Denies headache(s), Reports hoarseness (at times), Reports nasal congestion (on and off), Reports nasal discharge (on and off), Denies neck pain, Denies odynophagia, Reports post nasal drip, Reports sinus pressure (occasionally) and Denies sore throat Card Denies chest pain, Denies palpitations and Denies dyspnea Resp Denies chest congestion, Reports cough (on and off), Denies dyspnea and Denies wheezing GI Denies abdominal pain, Denies constipation, Denies dysphagia, Denies heartburn, Denies diarrhea, Denies nausea, Denies odynophagia and Denies vomiting Denies difficulty voiding, Denies nocturia, Denies dysuria and Denies urinary urgency Musc Denies neck pain Skin/Breast Denies rash Neuro Denies dizziness and Denies headache(s) Endo Reports fatigue and Denies palpitations Aller/Immun Denies wheezing Physical exam (Primary Care) Vital Signs: Last Vital Signs Pulse 82 11/24/23 10:05 BP 132/70 11/24/23 10:05 Pulse Ox 97 11/24/23 10:05 Oxygen Delivery Method Room Air 11/24/23 10:05 BMI result Body Mass Index 24.9 Tobacco/Smoking Status: Tobacco use Status Tobacco use date assessed 11/24/23 11/24/23 10:05 Patient Tobacco Use Status Never used Tobacco 11/24/23 10:05 e-Cigarette/Vaping Use Never Used 11/24/23 10:05 Thrive Assessment: Date of Thrive Assessment Date Thrive assessed 10/22/23 11/24/23 10:05 Const General: no acute distress and alert HENMT Ears: TM's normal bilaterally and EAC's normal General nose exam: Abnormal mucous membranes and turbinates present boggy bilateral Face and sinus: Yes sinuses nontender Throat: Yes posterior oropharynx normal and Yes tonsils normal (no TP congestion) Neck Neck: Yes no lymphadenopathy and Yes supple Thyroid: Thyroid normal Resp Auscultation: clear to auscultation bilaterally, no rales and no wheezes Cardio Rate: regular rate Rhythm: regular rhythm Heart sounds: no murmurs GI Palpation (GI): Soft to palpation and nontender Auscultation: normal bowel sounds General: Yes no CVA tenderness Back/Spine/Pelvis Back: no CVA tenderness Skin Rashes: no rashes Extrem General: Yes no clubbing, cyanosis or edema Results Reviewed Results Reviewed: Laboratory Tests 11/11/23 11/11/23 06:30 06:35 WBC 5.6 Hgb 13.8 Hct 42.2 Plt Count 206 Sodium 141 Potassium 4.0 Creatinine 0.73 Estimated GFR > 60 Fasting Glucose 84 Calcium 9.1 AST 21 ALT 14 Triglycerides 68 Cholesterol 209 H LDL Cholesterol, Calc 137 H HDL Cholesterol 59 25-OH Vitamin D Total 33.1 TSH 0.93 Ur Specific [place] 1.015 Urine Protein Negative Urine Glucose (UA) Negative Urine Blood Moderate (2+) H Urine Nitrite Negative Ur Leukocyte Esterase Small (1+) H Assessment and Plan Assessment & Plan (1) Allergic rhinitis: Code(s): J30.9 - Allergic rhinitis, unspecified Qualifiers: Allergic rhinitis trigger: unspecified Allergic rhinitis seasonality: unspecified Qualified Code(s): J30.9 - Allergic rhinitis, unspecified Plan: States that she has tried OTC Loratadine and Fexofenadine for a few weeks without much relief of her allergy symptoms She was also advised that she can try using OTC Fluticasone 50 mcg nasal spray QD PRN but she declined - states that she does not like spraying things up her nose States that she recently bought a Netipot but has not yet used it - is wondering if it will even help Have advised her to try using the Netipot since she already has it; can also try OTC Saline nasal spray PRN Have advised that as she has already tried Loratadine and Fexofenadine, the only other options left are Cetirizine and Levocetirizine, which are both available OTC, but patient states that she does not wish to try any more meds and will try to get by with her Tylenol and Advil PRN for now (2) White coat syndrome without hypertension: Code(s): R03.0 - Elevated blood-pressure reading, without diagnosis of hypertension Plan: Her BP in the office is usually elevated but appears to be much better today Her home BP log as usual shows systolic BP readings ranging from 110 mm to 130 mm, consistent with white coat hypertension Reinforced low sodium diet Patient is advised to continue monitoring her blood pressure regularly (3) Pure hypercholesterolemia: Code(s): E78.00 - Pure hypercholesterolemia, unspecified Plan: Results of her labs done a couple of weeks ago reviewed and discussed with patient - she is advised that her cholesterol levels are still elevated but have improved by about 20 points from her previous numbers (LDL is now at 137, total cholesterol is at 209) Reinforced low cholesterol diet - patient states that she has been on a Mediterranean-type diet for a few months now and it is also helping a lot with her bowel movements Will recheck her labs and fasting lipids in 6 months for follow-up (4) Acquired hypothyroidism: Code(s): E03.9 - Hypothyroidism, unspecified Plan: TFTs were normal on her recent labs Continue Synthroid 112 mcg QD Will recheck her TFTs in 6 months for follow up (5) Left-sided low back pain with sciatica: Code(s): M54.42 - Lumbago with sciatica, left side Qualifiers: Chronicity: unspecified Sciatica laterality: sciatica of left side Qualified Code(s): M54.42 - Lumbago with sciatica, left side Plan: Lumbar spine x-rays done back in April 2021 revealed (+) 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 Have recommended referral to physical therapy for her left-sided sciatica and discussed potential need for referral to neurosurgery but she declined referrals previously and stated that she will call for referrals when she feels she needs them Reinforced activity and weight lifting restrictions - states that her low back pain has actually subsided since and have not been bothering her much lately (6) Vitamin D deficiency: Code(s): E55.9 - Vitamin D deficiency, unspecified Plan: Continue Vitamin D3 2000 units QD Plan Follow up in 6 months Orders: Orders Complete Blood Count Auto Diff 6 Months D64.9 - Anemia, unspecified Lipid Panel 6 Months E78.00 - Pure hypercholesterolemia, unspecified Free T4 (Free Thyroxine) 6 Months E03.9 - Hypothyroidism, unspecified Comprehensive [place]. Panel Fast 6 Months E78.00 - Pure hypercholesterolemia, unspecified Thyroid Stimulating Hormone 6 Months E03.9 - Hypothyroidism, unspecified Vitamin D 25-OH Total 6 Months E55.9 - Vitamin D deficiency, unspecified UA CC w/rflx Micro + Cult 6 Months R30.0 - Dysuria Coding Level of Care Code Est Pt Level 4 (61196) Complex EM visit Add On G2211 Diagnoses Allergic rhinitis, unspecified seasonality, unspecified trigger J30.9 Allergic rhinitis trigger: unspecified Allergic rhinitis seasonality: unspecified White coat syndrome without hypertension R03.0 Pure hypercholesterolemia E78.00 Acquired hypothyroidism E03.9 Left-sided low back pain with left-sided sciatica, unspecified chronicity M54.42 Chronicity: unspecified Sciatica laterality: sciatica of left side Vitamin D deficiency E55.9
[2023-11-24 10:05] VITALS: BP 132/70; PULSE 82; O2SAT 97; BMI 24.9
== END 2023-11-24 10:52 | disposition home or self-care (01) ==
PROVIDERS: PCP Internal Medicine; Visit Provider Internal Medicine
DX: J30.9 Allergic rhinitis, unspecified (principal); R03.0 Elevated blood-pressure reading, without diagnosis of hypertension; E78.00 Pure hypercholesterolemia, unspecified; E03.9 Hypothyroidism, unspecified; M54.42 Lumbago with sciatica, left side; E55.9 Vitamin D deficiency, unspecified
CPT/HCPCS: 99214; G2211

== ENCOUNTER 2023-12-07 22:06 | Emergency (ER) | payer MEDICARE, SELFPAY ==
--- NOTE | 2023-12-07 | ECG_ITS ---
Test Reason : HYPERTENSION Blood Pressure : / mmHG Vent. Rate : 088 BPM Atrial Rate : 088 BPM P-R Int : 150 ms QRS Dur : 080 ms QT Int : 388 ms P-R-T Axes : 067 031 057 degrees QTc Int : 469 ms Normal sinus rhythm Possible Left atrial enlargement Borderline ECG No previous ECGs available Referred By: Generic ED Physician Electronically Signed By:NIVIA JASON MD
[2023-12-07 22:12] VITALS: BP 180/98; BP 239/80; PULSE 100; PULSE 91; RESP 17; TEMP 36.5; O2SAT 91; O2SAT 98; BMI 26.1
[2023-12-07 22:19] VITALS: BP 201/87
--- NOTE | 2023-12-07 22:27 | ED.GENADULT ---
HPI - General Adult General Chief complaint: Weakness Stated complaint: weakness Time Seen by Provider: 12/07/23 22:27 History of Present Illness ED Provider: Gary YOUSSEF narrative: The patient is an 78-year-old female who comes to the hospital by ambulance from her independent living facility, [facility]. The patient says she is generally healthy in his not been hospitalized and decades. She says that during the day today she felt unusually fatigued and had general discomfort throughout her whole body. She said that this was more significant several hours ago but then she started to feel better but then her symptoms returned. She spoke to staff at the facility and ultimately they decided they would call an ambulance and have her come to the emergency room. She does not really have any specific complaints other than fatigue and general body discomfort. She denies headache, sore throat, chest pain, shortness of breath, nausea, vomiting, abdominal pain, diarrhea. No urinary discomfort. Related Data Home Medications ?Medication ?Instructions ?Recorded ?Confirmed cholecalciferol (vitamin D3) 50 50 mcg PO DAILY 10/24/21 11/24/23 mcg (2,000 unit) capsule Previous Rx's ?Medication ?Instructions ?Recorded psyllium husk 3.4 gram/5.4 gram 0.5 tbsp PO DAILY #660 grams 10/24/21 oral powder (Metamucil) metronidazole 0.75 % topical gel 1 appl topical BID 10 days #45 03/11/22 grams Synthroid 112 mcg tablet 112 mcg PO DAILY 90 days #90 tabs 08/11/23 (levothyroxine) Allergies Allergy/AdvReac Type Severity Reaction Status Date / Time codeine [CODEINE] AdvReac Intermediate NAUSEA & Verified 12/07/23 22:16 VOMITING PMFSH Past Medical History Medical History (Updated 12/07/23 @ 23:39 by Evens Vega MD) Vitamin D deficiency White coat syndrome without hypertension Left-sided low back pain with sciatica Overweight (BMI 25.0-29.9) Pure hypercholesterolemia Acquired hypothyroidism Surgical History Hx of colonoscopy History of section Family History Family History Father No problems noted. Mother No problems noted. Social History Social History Housing: House Alcohol intake: never Patient Tobacco Use Status: Never used Tobacco Smoked in Last 30 Days: No e-Cigarette/Vaping Use: Never Used Second Hand Smoke Exposure: No Use of substances other than those prescribed or required for medical reasons: No Advance Directives: No Advance Directives Information Provided: No Do you have a plan to hurt others: No Plan service: No Current occupational status: retired Cognitive needs: No Hearing needs: No Vision needs: Yes Physical Exam ED Vital Signs: Vital Signs - 24 hr 12/07/23 22:12 12/07/23 22:19 12/08/23 00:00 Temperature 97.7 F 98.7 F Pulse Rate 100 85 Respiratory Rate 17 16 Blood Pressure 239/80 H 201/87 H 166/72 H Pulse Oximetry 98 97 Oxygen Delivery Method Room Air Room Air 12/08/23 00:00 Temperature 98.7 F Pulse Rate 85 Respiratory Rate 16 Blood Pressure 166/72 H Pulse Oximetry 97 Oxygen Delivery Method Room Air BMI result Body Mass Index 26.1 Const Other: The patient is a well-groomed 6o-year-old female who was awake and alert and does not appear in any distress. Mental status is normal. HENMT Other: Face is symmetrical. Mucous membranes moist. Eyes Other: Pupils are round equal, conjunctivae are clear, extraocular movements intact. Neck Other: No JVD, moving her neck easily, no neck swelling. Resp Effort & Inspection: normal respiratory effort Auscultation: clear to auscultation bilaterally Cardio Rate: regular rate Rhythm: regular rhythm Heart sounds: S1 normal heart sound present and S2 normal heart sound present GI Other: Abdomen is soft and nontender Skin Other: Skin is dry and unremarkable. Neuro Other: The patient is awake, alert, oriented, appropriate. Mental status and orientation are normal. She follows commands appropriately. Eye movements are intact. Visual plummer are intact. Face is symmetrical. Speech is normal. Strength is 5/5 in all 4 extremities. There is no pronator drift. Coordination is normal in all 4 extremities. Finger-nose is normal. Gait is normal. Sensation is normal. NIH stroke scale is 0. Extrem Other: No calf swelling or tenderness. No asymmetry. No edema. Medical Decision Making Medical Decision Making MDM Narrative: The patient presents with very nonspecific symptoms of a sense of fatigue and generalized body discomfort. On arrival she was quite hypertensive. Her blood pressure at triage was allegedly 239/80. Clinically the patient looks entirely well. There were no findings to suggest a stroke. She does not describe any symptoms to suggest an acute coronary syndrome. EKG is unremarkable. Labs are unremarkable. The patient was observed. Her blood pressure ultimately came down to 166/72 without intervention. I do not find anything on the patient's history or exam indicating a need for additional imaging in the emergency department or hospitalization. The patient seems to be having stress about a change in management of the ownership of her independent living facility where she lives. The patient will be discharged with instructions to follow up soon with your regular doctor to discuss these symptoms and manage her blood pressure. She has not currently on any antihypertensives given her elevated readings today that would need to be considered. Lab Data 12/07/23 22:27 12/07/23 22:27 Labs: Lab Results 12/07/23 12/07/23 Range/Units 22:27 22:28 WBC 9.1 (4.8-10.8) X10*3/uL RBC 4.61 (4.20-5.50) X10*6/uL Hgb 14.5 (12.0-16.0) g/dl Hct 42.9 (37.0-47.0) % MCV 93.1 (80.0-98.0) fL MCH 31.5 (27.0-33.0) pg MCHC 33.8 (31.0-35.0) g/dl RDW 11.9 (11.0-16.0) % Plt Count 199 (160-400) X10*3/uL MPV 10.0 (9.4-12.3) fL Immature Gran % (Auto) 0.3 (0.0-0.4) % Neut % (Auto) 55.6 (45-73) % Lymph % (Auto) 31.4 (20-40) % [place] % (Auto) 9.8 (2-11) % Eos % (Auto) 2.2 (0-4) % Baso % (Auto) 0.7 (0-2) % Lymph # (Auto) 2.9 (1.2-4.9) X10*3/uL [place] # (Auto) 0.9 (0.1-1.2) X10*3/uL Eos # (Auto) 0.2 (0.0-0.4) X10*3/uL Baso # (Auto) 0.1 (0.0-0.2) X10*3/uL Abs Immat Gran (auto) 0.03 (0.00-0.03) X10*3/uL Absolute Neuts (auto) 5.1 (2.0-8.3) x10*3/uL Absolute Nucleated RBC 0.000 (0.0-0.012) X10*3/uL Nucleated RBC % (auto) 0.0 (0.0-0.2) /100WBC Sodium 139 (135-145) mmol/L Potassium 3.7 (3.3-5.1) mmol/L Chloride 101 (96-108) mmol/L Carbon Dioxide 27 (22-29) mmol/L Anion Gap 15 (12-20) BUN 15 (9-16) mg/dL Creatinine 0.83 (0.5-1.4) mg/dL Estim Creat Clear Calc 51.5 Estimated GFR > 60 Random Glucose 99 (60-115) mg/dL Calcium 9.8 D (8.4-10.2) mg/dL Total Bilirubin 0.2 (0.0-1.0) mg/dL AST 24 (5-31) U/L ALT 18 (0-31) U/L Alkaline Phosphatase 77 (39-117) U/L Troponin I High Sens 3.1 (<3.5-17.0) ng/L C-Reactive Protein 0.48 (< or = 0.50) mg/dL Total Protein 7.7 (6.5-8.0) g/dL Albumin 4.3 (3.5-5.0) g/dL TSH 2.76 (0.32-4.0) uIU/mL Urine Color Yellow Urine Appearance Clear Urine pH 6.5 (5.0-9.0) Ur Specific [place] 1.010 (1.005-1.025) Urine Protein Negative (Neg-Trace) mg/dL Urine Glucose (UA) Negative (Negative) mg/dL Urine Ketones Negative (Negative) mg/dL Urine Blood Moderate (2+) H (Negative) Urine Nitrite Negative (Negative) Ur Leukocyte Esterase Trace H (Negative) Urine RBC 6-10 H (0-2) /HPF Urine WBC 0-5 (0-5) /HPF Ur Squamous Epith Cells 0-2 (0-2) /HPF Urine Bacteria None Seen (None Seen) Hyaline Casts 0-2 (0-2) /LPF Influenza Type A (PCR) NEGATIVE (Negative) Influenza Type B (PCR) NEGATIVE (Negative) RSV RNA Qual (PCR) NEGATIVE (Negative) SARS-CoV-2 RNA (RT-PCR) NEGATIVE (Negative) S. pyogenes GrpA MARCELNIA Negative (Negative) Independent Interpretation I performed an independent interpretation of an: EKG Interpretation: EKG at 22:23 shows normal sinus rhythm at 88 beats per minute. No acute findings. Discharge Plan Discharge Clinical Impression: Fatigue, High blood pressure Patient Disposition: Home, Self-Care Additional Instructions: Your testing in the emergency room today seems reassuring. I do not have a good explanation for your symptoms except to note that your blood pressures are high today. Please continue to monitor your blood pressures at home and follow up soon with your regular doctor to discuss your blood pressures and to discuss the symptoms that you had today. Return to the emergency room if significantly worse. Prescriptions: No Action metronidazole 0.75 % gel 1 appl topical BID 10 Days Qty: 45 0RF levothyroxine [Synthroid] 112 mcg tablet 112 mcg PO DAILY 90 Days Qty: 90 1RF cholecalciferol (vitamin D3) 50 mcg (2,000 unit) capsule 50 mcg PO DAILY Patient Comments: OTC Metamucil 3.4 gram/5.4 gram powder 0.5 tbsp PO DAILY Qty: 660 0RF Rx Instructions: mix into at least 8 oz of water or juice before administering Referrals: Saúl Del Castillo MD [Physician] - (Episode of fatigue, high blood pressure readings in the emergency room) Interventions: ED Discharge Assessment Last Done: 12/08/23 00:00 Discharge Date/Time: 12/08/23 00:02 Print Language: Tanzanian
[2023-12-07 22:34] LABS: MANUAL DIFF FLAG NO
[2023-12-07 22:36] LABS: Basophils Absolute Auto 0.1 X10*3/uL (0.0-0.2); Basophils Percent Auto 0.7 % (0-2); Eosinophils Absolute Auto 0.2 X10*3/uL (0.0-0.4); Eosinophils Percent Auto 2.2 % (0-4); Hematocrit 42.9 % (37.0-47.0); Hemoglobin 14.5 g/dl (12.0-16.0); Imm Gran Abs Auto 0.03 X10*3/uL (0.00-0.03); Imm Gran Pct Auto 0.3 % (0.0-0.4); Lymphocytes Absolute Auto 2.9 X10*3/uL (1.2-4.9); Lymphocytes Percent Auto 31.4 % (20-40); Mean Corpuscular HGB Conc 33.8 g/dl (31.0-35.0); Mean Corpuscular Hemoglobin 31.5 pg (27.0-33.0); Mean Corpuscular Volume 93.1 fL (80.0-98.0); Monocytes Absolute Auto 0.9 X10*3/uL (0.1-1.2); Monocytes Percent Auto 9.8 % (2-11); Neutrophils Absolute Auto 5.1 x10*3/uL (2.0-8.3); Neutrophils Percent Auto 55.6 % (45-73); Platelet Count 199 X10*3/uL (160-400); Red Blood Count 4.61 X10*6/uL (4.20-5.50); Red Cell Distribution Width 11.9 % (11.0-16.0); White Blood Count 9.1 X10*3/uL (4.8-10.8)
[2023-12-07 22:38] LABS: Appearance Urine Clear; Color Urine Yellow; Glucose Urine UA Negative (Negative); Leukocyte Esterase Urine Trace (Negative); Nitrite Urine Negative (Negative); PH 6.5 (5.0-9.0); UMIC TRIGGER UACC YES; Urine Blood Moderate (2+) (Negative); Urine Ketones Negative (Negative); Urine Protein Negative (Neg-Trace)
[2023-12-07 22:43] LABS: Bacteria Urine None Seen (None Seen); Hyaline Casts Urine 0-2 /LPF (0-2); Squamous Epithelial Cell Urine 0-2 /HPF (0-2); WBC Urine 0-5 /HPF (0-5)
[2023-12-07 22:46] LABS: IDNOW Serial# 08D9AD1C; Strep A Nucleic Acid Negative (Negative)
[2023-12-07 22:53] LABS: Anion Gap 15 (12-20)
[2023-12-07 22:55] LABS: Alanine Aminotransferase 18 U/L (0-31); Albumin Level 4.3 g/dL (3.5-5.0); Alkaline Phosphatase 77 U/L (39-117); Aspartate Amino Transferase 24 U/L (5-31); Bilirubin Total 0.2 mg/dL (0.0-1.0); Blood Urea Nitrogen 15 mg/dL (9-16); C Reactive Protein 0.48 mg/dL (< or = 0.50); Calcium 9.8 mg/dL (8.4-10.2); Carbon Dioxide 27 mmol/L (22-29); Chloride 101 mmol/L (96-108); Creatinine Clr Calc Pharmacy 51.5; Estimated Glomerular Filt Rate > 60; Glucose Random 99 mg/dL (60-115); Potassium 3.7 mmol/L (3.3-5.1); Sodium 139 mmol/L (135-145); Total Protein 7.7 g/dL (6.5-8.0)
[2023-12-07 22:56] LABS: Troponin-I High Sensitivity 3.1 ng/L (<3.5-17.0)
[2023-12-07 23:14] LABS: Influenza A PCR NEGATIVE (Negative); Influenza B PCR NEGATIVE (Negative); Resp Syncy Virus RNA Qual PCR NEGATIVE (Negative); SARS COV2 PCR INHOUSE NEGATIVE (Negative)
[2023-12-07 23:17] LABS: Thyroid Stimulating Hormone 2.76 uIU/mL (0.32-4.0)
[2023-12-08] VITALS: BP 166/72; PULSE 85; RESP 16; TEMP 37.1; O2SAT 97
== END 2023-12-08 00:02 | disposition home or self-care (01) ==
PROVIDERS: Emergency Provider Emergency Medicine
DX: R53.83 Other fatigue (principal); I10 Essential (primary) hypertension; F43.9 Reaction to severe stress, unspecified; Z03.818 Encounter for observation for suspected exposure to other biological agents ruled out
CPT/HCPCS: 0241U; 36415; 80053; 81001; 84443; 84484; 85025; 86140; 87651; 93005; 99283; 99284

== ENCOUNTER → 2023-12-07 22:23 | Outpatient (BNV) | payer MEDICARE, SELFPAY | PROVIDERS: Emergency Provider Emergency Medicine; Visit Provider Internal Medicine Cardiovascular Disease | DX: I10 Essential (primary) hypertension (principal) | CPT/HCPCS: 93010 ==

== ENCOUNTER 2024-01-13 01:21 | Emergency (ER) | payer MEDICARE, SELFPAY ==
--- NOTE | 2024-01-13 | ECG_ITS ---
Test Reason : HIGH BP Blood Pressure : / mmHG Vent. Rate : 093 BPM Atrial Rate : 093 BPM P-R Int : 168 ms QRS Dur : 082 ms QT Int : 368 ms P-R-T Axes : 074 045 067 degrees QTc Int : 457 ms Normal sinus rhythm Nonspecific ST abnormality Abnormal ECG When compared with ECG of 07-DEC-2023 22:23, T wave inversion no longer evident in Anterior leads Referred By: Generic ED Physician Electronically Signed By:Oliverio Mak
[2024-01-13 01:28] VITALS: BP 208/85; PULSE 85; RESP 17; TEMP 36.9; O2SAT 99
[2024-01-13 01:29] VITALS: BP 208/122; BP 208/85; PULSE 94; RESP 18; TEMP 36.9; O2SAT 97; BMI 25.0
[2024-01-13 01:48] LABS: MANUAL DIFF FLAG NO
[2024-01-13 01:49] LABS: Basophils Absolute Auto 0.1 X10*3/uL (0.0-0.2); Basophils Percent Auto 0.6 % (0-2); Eosinophils Absolute Auto 0.2 X10*3/uL (0.0-0.4); Eosinophils Percent Auto 2.1 % (0-4); Hematocrit 42.7 % (37.0-47.0); Hemoglobin 14.5 g/dl (12.0-16.0); Imm Gran Abs Auto 0.02 X10*3/uL (0.00-0.03); Imm Gran Pct Auto 0.2 % (0.0-0.4); Lymphocytes Absolute Auto 3.1 X10*3/uL (1.2-4.9); Mean Corpuscular Hemoglobin 31.7 pg (27.0-33.0); Mean Corpuscular Volume 93.4 fL (80.0-98.0); Mean Platelet Volume 9.7 fL (9.4-12.3); Monocytes Absolute Auto 0.8 X10*3/uL (0.1-1.2); Monocytes Percent Auto 8.9 % (2-11); Neutrophils Absolute Auto 5.1 x10*3/uL (2.0-8.3); Neutrophils Percent Auto 55.2 % (45-73); Platelet Count 200 X10*3/uL (160-400); Red Blood Count 4.57 X10*6/uL (4.20-5.50); Red Cell Distribution Width 11.9 % (11.0-16.0); White Blood Count 9.3 X10*3/uL (4.8-10.8)
[2024-01-13 02:05] LABS: Troponin-I High Sensitivity < 2.7 ng/L (<3.5-17.0)
[2024-01-13 02:12] LABS: Alanine Aminotransferase 16 U/L (0-31); Albumin Level 4.2 g/dL (3.5-5.0); Alkaline Phosphatase 63 U/L (39-117); Anion Gap 12 (12-20); Aspartate Amino Transferase 23 U/L (5-31); Bilirubin Total 0.3 mg/dL (0.0-1.0); Blood Urea Nitrogen 15 mg/dL (9-16); Calcium 9.8 mg/dL (8.4-10.2); Carbon Dioxide 28 mmol/L (22-29); Chloride 103 mmol/L (96-108); Creatinine Clr Calc Pharmacy 49.9; Estimated Glomerular Filt Rate > 60; Glucose Random 108 mg/dL (60-115); Potassium 3.8 mmol/L (3.3-5.1); Sodium 139 mmol/L (135-145); Total Protein 7.4 g/dL (6.5-8.0)
[2024-01-13 02:22] LABS: TSH reflex Free T4 1.88 uIU/mL (0.32-4.0)
[2024-01-13 02:44] VITALS: BP 205/88; PULSE 93; RESP 17; TEMP 36.5; O2SAT 98
--- NOTE | 2024-01-13 03:23 | PC.NURSE ---
Patient hypertensive, MD aware. Education for safety provided to the patient and patient declined to stay. Patient was informed of the complications of her high blood pressure and again declined staying at this time. aware
== END 2024-01-13 03:29 | disposition left against medical advice (07) ==
PROVIDERS: Emergency Provider Emergency Medicine
DX: R33.9 Retention of urine, unspecified (principal); I10 Essential (primary) hypertension; R94.31 Abnormal electrocardiogram [ECG] [EKG]; Z79.899 Other long term (current) drug therapy
CPT/HCPCS: 36415; 80053; 84443; 84484; 85025; 93005; 99281; 99283; 99284

== ENCOUNTER → 2024-01-13 01:31 | Outpatient (BNV) | payer MEDICARE, SELFPAY | PROVIDERS: Emergency Provider Emergency Medicine; Visit Provider Internal Medicine Cardiovascular Disease | DX: R94.31 Abnormal electrocardiogram [ECG] [EKG] (principal) | CPT/HCPCS: 93010 ==

== ENCOUNTER 2024-01-13 12:59 | Outpatient (AMB) | payer MEDICARE, SELFPAY ==
[2024-01-13 13:09] VITALS: BP 186/94; PULSE 86; O2SAT 98; BMI 25.2
--- NOTE | 2024-01-13 13:09 | MHC.PC.OV ---
Vital Signs 01/13/24 13:09 Height 5 ft 4 in Weight 147 lb BMI 25.2 BP 186/94 H Blood Pressure Location Lt brachial Position Sitting Pulse 86 Pulse Source Pulse Oximeter Pulse Oximetry (%) 98 Oxygen Delivery Method Room Air Intake Visit Reasons: Rash all over her body Laboratory Animal Caretaker: Present Accompanied by: Son Allergies codeine [CODEINE] Adverse Reaction (Intermediate, Verified 01/13/24 13:09) NAUSEA & VOMITING Tobacco use date assessed: 11/24/23 Fall risk assessment: No Falls in past year Last assessed Fall Risk: 01/13/24 Dental Screening Dental Screen Date: 10/22/23 HPI HPI Comments History of Present Illness Details 78 y/o female patient who presents to the clinic today for c/o ?Rash all over her body. Pt reports that in the last 4 days, she has noticed skin color changes distal digits (Fingers and Toes) plus the skin around them. Reports color change to RED on off. This is also associated with elevated Blood Pressure readings. She has had 3-4 Emergency room visits in this year alone for Elevated Blood pressure. She went to [facility] Friday due to High Blood pressure associated with skin color changes on Fingers and toes, But she left AMA due to long wait time. Denies headaches, dizziness, vision changes, nausea, vomiting, SOB or CP. When she takes her BP at home, Her Monitor/device unable to register the numbers due to being extremely elevated. She does not have an official diagnosis of HTN nor being on any treatment medication. On the side note, Pt has been extremely stressed at home since Jun of this year. She does live in an assisted living home. Reports the Kitchen Staff has been changed (June) now has a Cook, who does prepare meals with high salt content and unhealthy foods. Plus the food has no taste or flavor. This bothers her alot, and continues to worry about it daily. This is the same time she has noticed an elevation on her BP readings at home. At the last ED discharge, she was advised to contact her PCP for HTN treatment due persistent Elevated BP readings. [facility] Medical History (Updated 12/09/23 @ 00:01 by Terrie Dumont) Vitamin D deficiency White coat syndrome without hypertension Left-sided low back pain with sciatica Overweight (BMI 25.0-29.9) Pure hypercholesterolemia Acquired hypothyroidism Surgical History Hx of colonoscopy History of section Family History Father No problems noted. Mother No problems noted. Social History Housing: House Alcohol intake: never Patient Tobacco Use Status: Never used Tobacco e-Cigarette/Vaping Use: Never Used Second Hand Smoke Exposure: No service: No Current occupational status: retired Cognitive needs: No Hearing needs: No Vision needs: Yes Questionnaire Thrive Questionnaire Date Thrive assessed: 10/22/23 QUINTIN-7 AMB Questionnaire QUINTIN-7 Date QUINTIN - 7 assessed: 10/22/23 Source: Developed by Drs. Arnoldo Snider, Kera Alonzo, Marcus Mullen and colleagues, with an educational maryam from [employer]. Review of Systems Const All systems reviewed & are unremarkable except as noted in HPI and below Physical exam (Primary Care) Vital Signs: Last Vital Signs Pulse 86 01/13/24 13:09 BP 186/94 H 01/13/24 13:09 Pulse Ox 98 01/13/24 13:09 Oxygen Delivery Method Room Air 01/13/24 13:09 BMI result Body Mass Index 25.2 Tobacco/Smoking Status: Tobacco use Status Tobacco use date assessed 11/24/23 01/13/24 13:15 Patient Tobacco Use Status Never used Tobacco 01/13/24 13:15 e-Cigarette/Vaping Use Never Used 01/13/24 13:15 Thrive Assessment: Date of Thrive Assessment Date Thrive assessed 10/22/23 01/13/24 13:15 Const General: healthy appearing and comfortable Orientation/consciousness: patient oriented x3 Resp Effort & Inspection: normal respiratory effort and able to speak in complete sentences Auscultation: clear to auscultation bilaterally Cardio Heart sounds: S1 normal heart sound present and S2 normal heart sound present Skin General skin exam: no rashes or lesions noted and dry skin Neuro General: patient oriented x3, gait normal and moves all extremities Extrem Right upper extremity: Extremity exam: right hand Details: normal capillary refill, neurosensory exam normal, normal ROM of fingers and warmth Location: of the dorsal hand; no tenderness Left upper extremity: hand Details: normal capillary refill, neuromotor exam normal, neurosensory exam normal, normal ROM of fingers and warmth Location: of the dorsal hand Right lower extremity: foot Details: normal capillary refill, toes with normal ROM, warmth, no edema and vascular exam Details: dorsalis pedis pulse present, posterior tibial pulse present and normal capillary refill; no tenderness Left lower extremity: foot Details: normal capillary refill, toes with normal ROM and vascular exam Details: dorsalis pedis pulse present, posterior tibial pulse present and normal capillary refill; no tenderness Psych Speech and movement: Normal speech and movement present Vital Signs: Last Vital Signs Pulse 86 01/13/24 13:09 BP 186/94 H 01/13/24 13:09 Pulse Ox 98 01/13/24 13:09 Oxygen Delivery Method Room Air 01/13/24 13:09 BMI result Body Mass Index 25.2 Const General: healthy appearing and comfortable Orientation/consciousness: patient oriented x3 Resp Effort & Inspection: normal respiratory effort and able to speak in complete sentences Auscultation: clear to auscultation bilaterally Cardio Heart sounds: S1 normal heart sound present and S2 normal heart sound present Skin Other: Mildly pinkish to purplish color distal digits. Pulses equal bilateral and normal. No swelling or edema. General skin exam: no rashes or lesions noted and dry skin Neuro General: patient oriented x3, gait normal and moves all extremities Extrem Right upper extremity: Extremity exam: right hand Details: normal capillary refill, neurosensory exam normal, normal ROM of fingers and warmth Location: of the dorsal hand; no tenderness Left upper extremity: hand Details: normal capillary refill, neuromotor exam normal, neurosensory exam normal, normal ROM of fingers and warmth Location: of the dorsal hand Right lower extremity: foot Details: normal capillary refill, toes with normal ROM, warmth, no edema and vascular exam Details: dorsalis pedis pulse present, posterior tibial pulse present and normal capillary refill; no tenderness Left lower extremity: foot Details: normal capillary refill, toes with normal ROM and vascular exam Details: dorsalis pedis pulse present, posterior tibial pulse present and normal capillary refill; no tenderness Psych Speech and movement: Normal speech and movement present Assessment and Plan Assessment & Plan (1) Elevated blood pressure reading: Code(s): R03.0 - Elevated blood-pressure reading, without diagnosis of hypertension Plan: Patient's BP reading is elevated. Review of the chart does show consistent elevated BP readings, but prescribed medications. No evidence of Rash. But Pt does have some mild skin color change on her fingers/toes (pinkish to purplish color). Distal pulses present, normal caplary refill on fingers. Warm to touch digits. Advised putting her on small dose of HTN Tx medication today - for at least 2 weeks but Patient declined (does not like taking pills). She agreed to continue monitoring BP at home for the next 3 days and keep a record. Advised her to come Friday to the [facility] for re-evaluation. At that time I will start her on medications low dose. Patient agreed to this plan. Advised to call 911 if SOB, CP, Severe headaches or vision changes. Coding Level of Care Code Est Pt Level 4 (44849) Diagnoses Elevated blood pressure reading R03.0 Time Spent (min) 20 Comment Reviewing hospital notes, education.
== END 2024-01-13 14:33 | disposition home or self-care (01) ==
PROVIDERS: Visit Provider Nurse Practitioner Family
DX: R03.0 Elevated blood-pressure reading, without diagnosis of hypertension (principal)
CPT/HCPCS: 99214

== ENCOUNTER 2024-04-20 12:29 | Outpatient (AMB) | payer MEDICARE, SELFPAY ==
[2024-04-20 12:34] VITALS: BP 162/88; PULSE 102; O2SAT 97; BMI 25.2
--- NOTE | 2024-04-20 12:34 | A.OFFPC_ITS ---
Vital Signs 04/20/24 12:34 Height 5 ft 4 in Weight 147 lb 0.6 oz BMI 25.2 BP 162/88 H Blood Pressure Location Lt brachial Position Sitting Pulse 102 H Pulse Source Pulse Oximeter Pulse Oximetry (%) 97 Oxygen Delivery Method Room Air Intake Visit Reasons: back pain Intake Note: pt c/o lower left back pain X1week [employer] Required: No Allergies codeine [CODEINE] Adverse Reaction (Intermediate, Verified 04/20/24 12:41) NAUSEA & VOMITING Tobacco use date assessed: 11/24/23 Fall risk assessment: No Falls in past year Last assessed Fall Risk: 04/20/24 Dental Screening Dental Screen Date: 10/22/23 HPI HPI Comments History of Present Illness Details 79 y/o female patient who presents to [facility] today with c/o Back pain. Reports that back pain started ~ 1 week ago. Denies urinary or bowel problems. [facility] Medical History (Updated 03/10/24 @ 17:56 by Saúl Del Castillo MD) Vitamin D deficiency White coat syndrome without hypertension Left-sided low back pain with sciatica Overweight (BMI 25.0-29.9) Pure hypercholesterolemia Acquired hypothyroidism Surgical History Hx of colonoscopy History of section Family History Father No problems noted. Mother No problems noted. Social History Housing: House Alcohol intake: never Patient Tobacco Use Status: Never used Tobacco e-Cigarette/Vaping Use: Never Used Second Hand Smoke Exposure: No service: No Current occupational status: retired Cognitive needs: No Hearing needs: No Vision needs: Yes Questionnaire Thrive Questionnaire Date Thrive assessed: 10/22/23 AUDIT C Alcohol Use Questionnaire (AUDIT-C) 1. How often do you have a drink containing alcohol?: Never 3. How often do you have six or more drinks on one occasion?: Never Total Score: 0 Score Reviewed/Action Taken: Yes QUINTIN-7 AMB Questionnaire QUINTIN-7 Date QUINTIN - 7 assessed: 10/22/23 Source: Developed by Drs. Arnoldo Snider, Kera AlonzoMarcus and colleagues, with an educational maryam from [employer]. Review of Systems Const All systems reviewed & are unremarkable except as noted in HPI and below Physical exam (Primary Care) Vital Signs: Last Vital Signs Pulse 102 H 04/20/24 12:34 BP 162/88 H 04/20/24 12:34 Pulse Ox 97 04/20/24 12:34 Oxygen Delivery Method Room Air 04/20/24 12:34 BMI result Body Mass Index 25.2 Tobacco/Smoking Status: Tobacco use Status Tobacco use date assessed 11/24/23 04/20/24 12:35 Patient Tobacco Use Status Never used Tobacco 04/20/24 12:35 e-Cigarette/Vaping Use Never Used 04/20/24 12:35 Thrive Assessment: Date of Thrive Assessment Date Thrive assessed 10/22/23 04/20/24 12:35 Const General: no acute distress Orientation/consciousness: patient oriented x3 General: Yes no CVA tenderness Back/Spine/Pelvis Back: no CVA tenderness and back tenderness Thoracic/Lumbar Spine: pain with thoraco-lumbar ROM and lumbar spinal tenderness Skin General skin exam: no rashes or lesions noted Neuro General: patient oriented x3, gait normal and moves all extremities Coding Level of Care Code Est Pt Level 3 (06167) Diagnoses Left-sided low back pain with left-sided sciatica, unspecified chronicity M54.42 Chronicity: unspecified Sciatica laterality: sciatica of left side Time Spent (min) 15 Assessment & Plan Assessment & Plan (1) Left-sided low back pain with sciatica: Code(s): M54.42 - Lumbago with sciatica, left side Category: Medical Qualifiers: Chronicity: unspecified Sciatica laterality: sciatica of left side Qualified Code(s): M54.42 - Lumbago with sciatica, left side Plan: IceHot Rest Acetaminophen for pain relief Declined PT. Medications: New capsaicin 0.025% (Salonpas-Hot) do not leave patch on for more than 8 hrs 1 patch topical DAILY PRN 15 ea 0RF pain M54.42 - Lumbago with sciatica, left side acetaminophen 1,000 mg (2 x 500 mg) PO Q6H PRN 60 caps 0RF pain M54.42 - Lumbago with sciatica, left side Discontinued metronidazole 0.75% Discontinued Reason: Patient Completed Course 1 appl topical BID 10 days 45 grams 0RF
== END 2024-04-20 13:59 | disposition home or self-care (01) ==
LOC: HO.HMCH 12:29
PROVIDERS: PCP Internal Medicine; Visit Provider Nurse Practitioner Family
DX: M54.42 Lumbago with sciatica, left side (principal)

== ENCOUNTER → 2024-04-20 12:29 | Outpatient (BNVA) | payer MEDICARE, SELFPAY | PROVIDERS: PCP Internal Medicine; Visit Provider Nurse Practitioner Family | DX: M54.42 Lumbago with sciatica, left side (principal) | CPT/HCPCS: 99212 ==

== ENCOUNTER 2024-05-17 06:16 | Outpatient (REF) | payer MEDICARE, SELFPAY ==
[2024-05-17 06:47] LABS: MANUAL DIFF FLAG NO
[2024-05-17 07:28] LABS: Basophils Percent Auto 0.6 % (0-2); Eosinophils Absolute Auto 0.1 X10*3/uL (0.0-0.4); Eosinophils Percent Auto 1.9 % (0-4); Hematocrit 43.3 % (37.0-47.0); Hemoglobin 14.1 g/dl (12.0-16.0); Imm Gran Abs Auto 0.04 X10*3/uL (0.00-0.03); Imm Gran Pct Auto 0.6 % (0.0-0.4); Lymphocytes Absolute Auto 2.2 X10*3/uL (1.2-4.9); Lymphocytes Percent Auto 31.1 % (20-40); Mean Corpuscular HGB Conc 32.6 g/dl (31.0-35.0); Mean Corpuscular Hemoglobin 31.2 pg (27.0-33.0); Mean Corpuscular Volume 95.8 fL (80.0-98.0); Mean Platelet Volume 9.9 fL (9.4-12.3); Monocytes Absolute Auto 0.5 X10*3/uL (0.1-1.2); Monocytes Percent Auto 7.6 % (2-11); Neutrophils Absolute Auto 4.1 x10*3/uL (2.0-8.3); Neutrophils Percent Auto 58.2 % (45-73); Platelet Count 241 X10*3/uL (160-400); Red Blood Count 4.52 X10*6/uL (4.20-5.50); Red Cell Distribution Width 11.7 % (11.0-16.0)
[2024-05-17 08:04] LABS: Appearance Urine Clear; Color Urine Yellow; Glucose Urine UA Negative (Negative); Leukocyte Esterase Urine Small (1+) (Negative); Nitrite Urine Negative (Negative); PH 7.5 (5.0-9.0); UMIC TRIGGER UACC YES; Urine Blood Small (1+) (Negative); Urine Ketones Negative (Negative); Urine Protein Negative (Neg-Trace)
[2024-05-17 08:28] LABS: Bacteria Urine None Seen (None Seen); Hyaline Casts Urine 0-2 /LPF (0-2); Squamous Epithelial Cell Urine 0-2 /HPF (0-2); UACC Culture Trigger YES; WBC Urine 0-5 /HPF (0-5)
[2024-05-17 08:29] LABS: Alanine Aminotransferase 19 U/L (0-31); Albumin Level 4.1 g/dL (3.5-5.0); Alkaline Phosphatase 91 U/L (39-117); Anion Gap 11 (12-20); Aspartate Amino Transferase 27 U/L (5-31); Bilirubin Total 0.3 mg/dL (0.0-1.0); Blood Urea Nitrogen 13 mg/dL (9-16); Calcium 9.5 mg/dL (8.4-10.2); Carbon Dioxide 31 mmol/L (22-29); Chloride 105 mmol/L (96-108); Cholesterol 221 mg/dL (<200); Estimated Glomerular Filt Rate > 60; Glucose Fasting 99 mg/dL (60-99); HDL Cholesterol 64 mg/dL (>40); LDL Cholesterol Calculated 144 mg/dL (<100); Potassium 3.6 mmol/L (3.3-5.1); Sodium 143 mmol/L (135-145); Total Protein 7.2 g/dL (6.5-8.0); Triglycerides 68 mg/dL (<150)
[2024-05-17 08:36] LABS: Free T4 (Free Thyroxine) 1.32 ng/dL (0.71-1.85); Thyroid Stimulating Hormone 0.96 uIU/mL (0.32-4.0); Vitamin D 25-OH Total 36.6 ng/mL (>30)
== END 2024-05-17 06:17 | disposition home or self-care (01) ==
LOC: HO.LAB 06:16
PROVIDERS: PCP Internal Medicine; Visit Provider Internal Medicine
DX: E78.00 Pure hypercholesterolemia, unspecified (principal); E03.9 Hypothyroidism, unspecified; E55.9 Vitamin D deficiency, unspecified; D64.9 Anemia, unspecified; R30.0 Dysuria
CPT/HCPCS: 36415; 80053; 80061; 81001; 81003; 82306; 84439; 84443; 85025; 87086

== ENCOUNTER 2024-06-02 08:57 | Outpatient (AMB) | payer MEDICARE, SELFPAY ==
[2024-06-02 08:58] VITALS: BP 122/80; PULSE 94; O2SAT 98; BMI 24.5
--- NOTE | 2024-06-02 08:58 | MHC.PC.OV ---
Vital Signs 06/02/24 08:58 06/02/24 09:25 Height 5 ft 4 in Weight 143 lb BMI 24.5 BP 122/80 150/78 H Blood Pressure Location Lt brachial Lt brachial Position Sitting Sitting Pulse 94 Pulse Source Pulse Oximeter Pulse Oximetry (%) 98 Oxygen Delivery Method Room Air Intake Visit Reasons: hyperlipidemia, hypothyroidism, allergic rhinitis Therapeutic Dietitian Required: No Accompanied by: Self / Same As Patient Allergies codeine [CODEINE] Adverse Reaction (Intermediate, Verified 06/02/24 09:12) NAUSEA & VOMITING Medication List - Last Reconciled 06/02/24 by Saúl Del Castillo MD acetaminophen 1,000 mg (2 x 500 mg) PO Q6H PRN capsaicin 0.025% (Salonpas-Hot) 1 patch topical DAILY PRN cholecalciferol (vitamin D3) 50 mcg PO DAILY Synthroid (levothyroxine) 112 mcg PO DAILY 90 days NS Tobacco use date assessed: 06/02/24 Fall risk assessment: No Falls in past year Last assessed Fall Risk: 06/02/24 Dental Screening Dental Screen Date: 06/02/24 Did you have a dental visit in the last 12 months?: Yes Did you have a dental problem in the last 6 months where you did not have access to dental care?: No Was dental information given to patient?: Patient has dentist HPI hyperlipidemia, hypothyroidism, allergic rhinitis HPI Details Patient comes in today for her follow up visit States that she is still experiencing recurrent nasal / sinus congestion and dry nose/dry mouth lately - symptoms have been going on for months now so she does not think it is just seasonal allergies Reports that her tongue feels very dry all the time and it hurts as well when it gets too dry Also relates (+) on and off sore throat but denies any dysphagia or painful swallowing States that she has tried some OTC antihistamines as well as nasal sprays (Comfrey) lately with some relief She denies any fever; denies any headaches or dizziness Denies any chest pains, no SOB No nausea/vomiting, no abdominal pain No change in bowel habits noted She had her follow up labs done a couple of weeks ago - to discuss her results [facility] Medical History (Updated 06/02/24 @ 09:37 by Saúl Del Castillo MD) Anxiety Vitamin D deficiency White coat syndrome without hypertension Left-sided low back pain with sciatica Overweight (BMI 25.0-29.9) Pure hypercholesterolemia Acquired hypothyroidism Surgical History Hx of colonoscopy History of section Family History Father No problems noted. Mother No problems noted. Social History Housing: House Alcohol intake: never Patient Tobacco Use Status: Never used Tobacco e-Cigarette/Vaping Use: Never Used Second Hand Smoke Exposure: No service: No Current occupational status: retired Cognitive needs: No Hearing needs: No Vision needs: Yes Questionnaire PHQ-9 Over the last 2 weeks, how often have you been bothered by any of the following problems? 1. Little interest or pleasure in doing things: not at all 2. Feeling down, depressed, or hopeless: not at all 3. Trouble falling or staying asleep, or sleeping too much: not at all 4. Feeling tired or having little energy: not at all 5. Poor appetite or overeating: not at all 6. Feeling bad about yourself - or that you are a failure or have let yourself or your family down: not at all 7. Trouble concentrating on things, such as reading the newspaper or watching television: not at all 8. Moving or speaking so slowly that other people could have noticed. Or the opposite - being so fidgety or restless that you have been moving around a lot more than usual: not at all 9. Thoughts that you would be better off or of hurting yourself in some way: not at all Total score: 0 Depression Screening Interpretation: Negative Depression Screening Done: Yes 55194 - PHQ-9 Billing: Yes Source: Developed by Drs. Arnoldo Snider, Kera Alonzo, Marcus Mullen and colleagues, with an educational maryam from [employer]. Thrive Questionnaire Date Thrive assessed: 06/02/24 I am a: Patient What is your living situation today?: I have a steady place to live Within the past 12 months, did the food you bought not last and you didn't have the money to get more?: Never true Within the past 12 months, did you worry whether your food would run out before you got money to buy more?: Never true Do you have trouble paying for medicines?: No Do you have trouble getting transportation to medical appointments?: No Do you have trouble paying your heating and electricity bill?: No Do you have trouble taking care of your child, family member or friend?: No Do you have trouble with day-to-day activities such as bathing, preparing meals, shopping, managing finances, etc.?: No Are you currently unemployed and looking for a job?: No Are you interested in more education?: No Please select the resources that you would like help with: None Currently or been in a relationship where the following occur: I choose not to answer THRIVE Score: 0 AUDIT C Alcohol Use Questionnaire (AUDIT-C) 1. How often do you have a drink containing alcohol?: Never 3. How often do you have six or more drinks on one occasion?: Never Total Score: 0 Score Reviewed/Action Taken: Yes QUINTIN-7 AMB Questionnaire QUINTIN-7 Date QUINTIN - 7 assessed: 06/02/24 Feeling nervous, anxious, or on edge: 0 = Not at all Not being able to stop or control worryin = Not at all Worrying too much about different things: 0 = Not at all Trouble relaxin = Not at all Being so restless that it is hard to sit still: 0 = Not at all Becoming easily annoyed or irritable: 0 = Not at all Feeling afraid as if something awful might happen: 0 = Not at all Total QUINTIN-7 score (0-4 normal; 5-9 mild; 10-14 moderate; 15-21 severe): 0 Source: Developed by Drs. Arnoldo Snider, Kera Alonzo, Marcus Mullen and colleagues, with an educational maryam from [employer]. Review of Systems Const Denies chills, Reports fatigue, Denies fever(s) and Denies headache(s) ENT Denies dysphagia, Denies dizziness, Reports dry mouth, Denies otalgia, Denies headache(s), Denies hoarseness, Reports nasal congestion (frequent), Reports nasal discharge (on and off), Denies neck pain, Denies odynophagia, Reports sinus pressure (occasionally), Denies sore throat and Denies tongue swelling (but tongue feels dry often and (+) pain at times) Card Denies chest pain, Denies palpitations and Denies dyspnea Resp Denies chest congestion, Reports cough (on and off), Denies dyspnea and Denies wheezing GI Denies abdominal pain, Denies constipation, Denies dysphagia, Denies heartburn, Denies diarrhea, Denies nausea, Denies odynophagia and Denies vomiting Denies difficulty voiding, Denies nocturia, Denies dysuria and Denies urinary urgency Musc Denies neck pain Skin/Breast Denies rash Neuro Denies dizziness and Denies headache(s) Psych Reports anxiety Endo Reports fatigue and Denies palpitations Aller/Immun Denies tongue swelling (but tongue feels dry often and (+) pain at times) and Denies wheezing Physical exam (Primary Care) Vital Signs: Last Vital Signs Pulse 94 06/02/24 08:58 BP 150/78 H 06/02/24 09:25 Pulse Ox 98 06/02/24 08:58 Oxygen Delivery Method Room Air 06/02/24 08:58 BMI result Body Mass Index 24.5 Tobacco/Smoking Status: Tobacco use Status Tobacco use date assessed 06/02/24 06/02/24 09:03 Patient Tobacco Use Status Never used Tobacco 06/02/24 09:03 e-Cigarette/Vaping Use Never Used 06/02/24 09:03 PHQ-9: PHQ-9 Score PHQ-9: Total score 0 06/02/24 09:39 Depression Screening Interpretation: Negative Thrive Assessment: Date of Thrive Assessment Date Thrive assessed 06/02/24 06/02/24 09:03 Currently or been in a relationship where the following occur: I choose not to answer Const General: no acute distress and alert HENMT Ears: TM's normal bilaterally and EAC's normal General nose exam: Abnormal mucous membranes and turbinates present boggy bilateral Face and sinus: Yes sinuses nontender Mouth: tongue abnormal (increased erythema of the tongue) Throat: Yes posterior oropharynx normal and Yes tonsils normal (no TP congestion) Neck Neck: Yes supple and No lymphadenopathy Thyroid: Thyroid normal Resp Auscultation: clear to auscultation bilaterally, no rales and no wheezes Cardio Rate: regular rate Rhythm: regular rhythm Heart sounds: no murmurs GI Palpation (GI): Soft to palpation and nontender Auscultation: normal bowel sounds General: Yes no CVA tenderness Back/Spine/Pelvis Back: no CVA tenderness Skin Rashes: no rashes Extrem General: Yes no clubbing, cyanosis or edema Results Reviewed Results Reviewed: Laboratory Tests 05/17/24 06:45 WBC 7.0 Hgb 14.1 Hct 43.3 Plt Count 241 Sodium 143 Potassium 3.6 Creatinine 0.81 Estimated GFR > 60 Fasting Glucose 99 Calcium 9.5 AST 27 ALT 19 Triglycerides 68 Cholesterol 221 H LDL Cholesterol, Calc 144 H HDL Cholesterol 64 25-OH Vitamin D Total 36.6 TSH 0.96 Free T4 1.32 Ur Specific [place] 1.010 Urine Protein Negative Urine Glucose (UA) Negative Urine Blood Small (1+) H Urine Nitrite Negative Ur Leukocyte Esterase Small (1+) H Coding Level of Care Code Est Pt Level 4 (05118) Diagnoses Multiple allergies Z88.9 Dry mouth R68.2 White coat syndrome without hypertension R03.0 Pure hypercholesterolemia E78.00 Acquired hypothyroidism E03.9 Left-sided low back pain with left-sided sciatica, unspecified chronicity M54.42 Chronicity: unspecified Sciatica laterality: sciatica of left side Vitamin D deficiency E55.9 Anxiety F41.9 Additional Codes PHQ-9 - 86491 - PHQ-9 Billing: Yes ([id number]) Assessment & Plan Assessment & Plan (1) Multiple allergies: Code(s): Z88.9 - Allergy status to unspecified drugs, medicaments and biological substances Category: Medical Plan: Patient states that she has tried OTC alternatives like Loratadine and Fexofenadine for a few weeks now without any relief of her symptoms She was advised in the past that she can try using OTC Fluticasone 50 mcg nasal spray QD PRN but she declined - states that she does not like spraying things up her nose although she has tried using some Comfrey saline spray recently, which she states helped very little Have advised her that the only other options left are Cetirizine and Levocetirizine, which are both available OTC - have recommended that she try Cetirizine for now and if that still does not help, then she should consider a referral to an crop pest control specialist for allergy testing Rx for Cetirizine 10 mg QD PRN sent to her pharmacy (2) Dry mouth: Code(s): R68.2 - Dry mouth, unspecified Category: Medical Plan: Have advised patient that this is likely related to her allergies and what she has been using/taking to help control her symptoms Have recommended that she try using OTC Biotene mouthwash 2 to 3 times a day for now (3) White coat syndrome without hypertension: Code(s): R03.0 - Elevated blood-pressure reading, without diagnosis of hypertension Category: Medical Plan: Her BP in the office is usually elevated and is at 150/78 when rechecked, which is NOT unusual for her Her home BP log has shown systolic BP readings ranging from 110 mm to 130 mm in the past, consistent with white coat hypertension Reinforced low sodium diet Patient is advised to continue monitoring her blood pressure regularly (4) Pure hypercholesterolemia: Code(s): E78.00 - Pure hypercholesterolemia, unspecified Category: Medical Plan: Results of her labs done a couple of weeks ago reviewed and discussed with patient Her cholesterol numbers have increased slightly from previous but overall are mostly unchanged although they are still higher than recommended, with her total cholesterol at 221 mg/dl and LDL cholesterol at 144 mg/dl Reinforced low cholesterol diet - patient was supposedly on a Mediterranean-type diet for a few months but admits to eating a lot of ice cream lately, which she will now stop Will recheck her labs and fasting lipids in 6 months for follow-up (5) Acquired hypothyroidism: Code(s): E03.9 - Hypothyroidism, unspecified Category: Medical Plan: Her TFTs were normal on her recent labs Continue Synthroid 112 mcg QD Will recheck her TFTs in 6 months for follow up (6) Left-sided low back pain with sciatica: Code(s): M54.42 - Lumbago with sciatica, left side Category: Medical Qualifiers: Chronicity: unspecified Sciatica laterality: sciatica of left side Qualified Code(s): M54.42 - Lumbago with sciatica, left side Plan: Lumbar spine x-rays done back in April 2021 revealed (+) 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 Have recommended referral to physical therapy for her left-sided sciatica and discussed potential need for referral to neurosurgery but patient declined all previous referrals and recommendations - states that she will call for referrals when she needs them Reinforced activity and weight lifting restrictions - states that her low back pain has not been bothering her too much lately (7) Vitamin D deficiency: Code(s): E55.9 - Vitamin D deficiency, unspecified Category: Medical Plan: Continue Vitamin D3 2000 units QD (8) Anxiety: Code(s): F41.9 - Anxiety disorder, unspecified Category: Medical Plan: She appears to have a lot of anxiety issues, which may be making her current symptoms feel a lot worse than they actually are She has declined any Rx to help with her anxiety - states that she does not like taking any medications and manages her anxiety by other means, like taking walks Have also recommended trying counseling/therapy but she also declined these at present Plan Follow up in 6 months Orders: Orders Comprehensive [place]. Panel Fast 6 Months E78.00 - Pure hypercholesterolemia, unspecified Free T4 (Free Thyroxine) 6 Months E03.9 - Hypothyroidism, unspecified UA CC w/rflx Micro + Cult 6 Months R30.0 - Dysuria Complete Blood Count Auto Diff 6 Months D64.9 - Anemia, unspecified Thyroid Stimulating Hormone 6 Months E03.9 - Hypothyroidism, unspecified Lipid Panel 6 Months E78.00 - Pure hypercholesterolemia, unspecified Vitamin D 25-OH Total 6 Months E55.9 - Vitamin D deficiency, unspecified Medications: New cetirizine 10 mg PO DAILY 90 days PRN 90 tabs 3RF allergy symptoms
[2024-06-02 09:25] VITALS: BP 150/78
== END 2024-06-02 09:35 | disposition home or self-care (01) ==
PROVIDERS: PCP Internal Medicine; Visit Provider Internal Medicine
DX: Z88.9 Allergy status to unspecified drugs, medicaments and biological substances (principal); R68.2 Dry mouth, unspecified; R03.0 Elevated blood-pressure reading, without diagnosis of hypertension; E78.00 Pure hypercholesterolemia, unspecified; E03.9 Hypothyroidism, unspecified; M54.42 Lumbago with sciatica, left side; E55.9 Vitamin D deficiency, unspecified; F41.9 Anxiety disorder, unspecified

== ENCOUNTER → 2024-06-02 08:57 | Outpatient (BNVA) | payer MEDICARE, SELFPAY | PROVIDERS: PCP Internal Medicine; Visit Provider Internal Medicine | DX: R68.2 Dry mouth, unspecified (principal); R03.0 Elevated blood-pressure reading, without diagnosis of hypertension; E78.00 Pure hypercholesterolemia, unspecified; E03.9 Hypothyroidism, unspecified; M54.42 Lumbago with sciatica, left side; E55.9 Vitamin D deficiency, unspecified; F41.9 Anxiety disorder, unspecified; Z88.9 Allergy status to unspecified drugs, medicaments and biological substances | CPT/HCPCS: 96127; 99212 ==

== ENCOUNTER 2024-11-24 15:16 | Emergency (ER) | payer MEDICARE, SELFPAY ==
--- NOTE | ~2024-11-24 | XR_ITS ---
CLINICAL HISTORY: constipation 1 view abdomen Comparison: None Findings: No pneumoperitoneum or pneumatosis. No small bowel dilatation. Moderate fecal retention within the colon, Predominating within the proximal colon.. No abnormal calcifications. No acute fractures. IMPRESSION: Moderate fecal retention within the colon. This document has been electronically signed by: Annika Rivers MD on 11/24/2024 17:43:56
--- NOTE | ~2024-11-24 | CT_ITS ---
CLINICAL HISTORY: headache, HTN CT head without contrast Comparison: None Findings: Involutional change and nonspecific white matter hypodensity. No intracranial mass, midline shift, hydrocephalus, or acute hemorrhage. Orbits, paranasal sinuses, and mastoid air cells are unremarkable. No skull fracture Impression: 1. No acute findings This document has been electronically signed by: Annika Rivers MD on 11/24/2024 18:02:00
[2024-11-24 15:41] VITALS: BP 186/92; PULSE 89; O2SAT 95
[2024-11-24 15:42] VITALS: BP 212/92; PULSE 88; RESP 18; TEMP 36.6; O2SAT 96; BMI 24.2
--- NOTE | 2024-11-24 15:44 | ED_ITS ---
HPI - General Adult General Chief complaint: General Medical Stated complaint: Constipation Hypotension Time Seen by Provider: 11/24/24 15:41 Source: patient, family (son), EMS, RN notes reviewed and old records reviewed Mode of arrival: EMS Limitations: no limitations History of Present Illness ED Provider: Sulma HPI narrative: Patient is an 79-year-old female with history of hypothyroidism, hypercholesterolemia, white coat syndrome without hypertension presenting to the emergency department with complaint of constipation for the past few months. Also reporting intermittent mild headaches which she attributes to the weather. 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 She states that the meals have become greasy with heavy sauces which is not how she typically eats given a choice. In addition, she cut back on fruits in her diet as she felt that she was having flushing to her face from eating too much of the same types of fruits. Reports daily bowel movements but that she has to strain to have her BMs. Denies urinary symptoms. Denies fevers. States today was walking in the mall and felt more fatigued than normal, denies dizziness, lightheadedness or near-syncope. Has used prune juice, metamucil, and Miralax with little change. BP significantly elevated for EMS and during triage, patient and son report history of white coat syndrome, son states she has monitored her BP in the past and it is always normal, PCP aware, she is not on any antihypertensives. MD complaint: constipation Onset (ago): month(s) Related Data Home Medications ?Medication ?Instructions ?Recorded ?Confirmed cholecalciferol (vitamin D3) 50 50 mcg PO DAILY 10/24/21 06/02/24 mcg (2,000 unit) capsule Previous Rx's ?Medication ?Instructions ?Recorded acetaminophen 500 mg capsule 1,000 mg (2 x 500 mg) PO Q6H PRN 04/20/24 pain #60 caps capsaicin 0.025 % topical patch 1 patch topical DAILY PRN pain #15 04/20/24 (Salonpas-Hot) ea cetirizine 10 mg tablet 10 mg PO DAILY PRN allergy 06/02/24 symptoms 90 days #90 tabs Synthroid 112 mcg tablet 112 mcg PO DAILY 90 days #90 tabs 11/12/24 (levothyroxine) sennosides 8.6 mg-docusate sodium 1 tab-cap PO BEDTIME #14 tabs 11/24/24 50 mg tablet (Senna with Docusate Sodium) Allergies Allergy/AdvReac Type Severity Reaction Status Date / Time codeine [CODEINE] AdvReac Intermediate NAUSEA & Verified 11/24/24 15:43 VOMITING Review of Systems 2 Review of Systems: As per HPI Yes all other systems are reviewed and are negative Constitutional: Constitutional: Reports as per HPI [facility] Past Medical History Medical History (Updated 11/24/24 @ 18:13 by Seema Ozuna NP) Anxiety Vitamin D deficiency White coat syndrome without hypertension Left-sided low back pain with sciatica Overweight (BMI 25.0-29.9) Pure hypercholesterolemia Acquired hypothyroidism Surgical History Hx of colonoscopy History of section Family History Family History Father No problems noted. Mother No problems noted. Social History Social History Housing: House Alcohol intake: never Patient Tobacco Use Status: Never used Tobacco Smoked in Last 30 Days: No e-Cigarette/Vaping Use: Never Used Second Hand Smoke Exposure: No Use of substances other than those prescribed or required for medical reasons: No Advance Directives: No Advance Directives Information Provided: No Do you have a plan to hurt others: No Plan service: No Current occupational status: retired Cognitive needs: No Hearing needs: No Vision needs: Yes Physical Exam ED Vital Signs: Vital Signs - 24 hr 11/24/24 15:42 Temperature 97.8 F Pulse Rate 88 Respiratory Rate 18 Blood Pressure 212/92 H Pulse Oximetry 96 Oxygen Delivery Method Room Air BMI result Body Mass Index 24.2 Vital signs have been reviewed and appear to be correct. Blood pressure hypertensive. Heart rate normal. Respiratory rate normal. Temperature normal. Oxygen saturation normal. Const General: cooperative, healthy appearing and no acute distress Orientation/consciousness: oriented to person, oriented to place, oriented to time and patient oriented x3 Limitations: no limitations HENMT Head: Yes normocephalic and Yes atraumatic Ears: external ears normal General nose exam: Normal external nose present Face and sinus: Yes face symmetric Mouth: oropharynx normal and moist mucous membranes Throat: Yes uvula midline Eyes Pupils: Equal, round and reactive pupils present Neck Neck: Yes normal visual inspection and Yes supple Resp Effort & Inspection: normal respiratory effort and able to speak in complete sentences Auscultation: clear to auscultation bilaterally Cardio Rate: regular rate Rhythm: regular rhythm Heart sounds: S1 normal heart sound present and S2 normal heart sound present GI Palpation (GI): Soft to palpation and nontender Auscultation: normoactive bowel sounds General: Yes no CVA tenderness Back/Spine/Pelvis Back: no CVA tenderness Skin General skin exam: elasticity normal and turgor normal Neuro General: oriented to person, oriented to place, oriented to time, patient oriented x3, moves all extremities, no focal motor deficits and CN's II-XI intact bilaterally Cranial nerves: Yes Equal, round and reactive pupils present Cognition (Neuro): normal cognition Extrem General: Yes full ROM, Yes no pedal edema and Yes no calf tenderness Psych Mental Status: mental status grossly normal Affect: normal affect Thought process: Normal thought process present NIH Stroke Scale Internal: Initial- Upon Arrival Time: 16:30 Level of Consciousness: Alert Level of Consciousness Questions: Answers both questions correctly Level of Consciousness Commands: Performs both tasks correctly Best Gaze: Normal Visual: No visual loss Facial Palsy: Normal Motor Arm (Right): No drift Motor Arm (Left): No drift Motor Leg (Right): No drift Motor Leg (Left): No drift Limb Ataxia: Absent Sensory: Normal Best Language: No aphasia Dysarthia: Normal Extinction and Inattention: No abnormality Score: 0 Medical Decision Making Medical Decision Making MDM Narrative: Patient is an 79-year-old female with history of hypothyroidism, hypercholesterolemia, white coat syndrome without hypertension presenting to the emergency department with complaint of constipation for the past few months. On exam patient is awake, A+Ox3, hypertensive, VS otherwise WNL, afebrile, normal neurological exam without focal deficits, physical exam findings as above. Given reported symptoms and physical exam findings, initial differential includes but is not limited to constipation, UTI, hypertension, electrolyte abnormality. Unlikely obstruction as patient is well appearing and symptoms have been ongoing for some time. Patient adamantly declining EKG, discussed reason for ordering with patient who continues to decline. Feel ACS unlikely. Declining any medications for blood pressure management, stating that her blood pressure is always significantly elevated when in the hospital setting. Upon review of EMR, Dr. Del Castillo's notes state that when patient checks her BP readings at home her SBP is between 110-130. Labs unremarkable, troponin negative, TSH normal. UA is without evidence of infection. KUB notable for moderate fecal retention, specifically within proximal colon. Feel enema would likely provide little relief of symptoms. CT head notable for no ICH, malignancy/mass. My interpretation is in agreement with the radiologist's interpretation. Feel patient is stable for discharge. Will add stimulant laxative as patient has not tried this thus far. Docu-senna sent to pharmacy. Also discussed with patient adding more fiber into her diet. Advised patient to continue monitoring BPs at home and follow up with PCP at her scheduled appointment last month. Patient extremely anxious during ED visit, feel this likely contributes to some of her symptoms. Return precautions discussed with patient and son. Patient verbalized understanding of and agreement with plan. Differential Diagnosis Differential Diagnoses: The differential diagnosis associated with the presentation includes As per [facility] Admission/Observation Consideration of admission/observation: Escalation of care including admission/observation considered Patient would have been admitted to the hospital had their work up had any findings where hospital admission was appropriate and their clinical presentation warranted hospital admission. Lab Data [facility] Lab Attestation statement: I reviewed the patient's lab results. As per [facility] 11/24/24 16:33 11/24/24 16:33 Labs: Lab Results 11/24/24 11/24/24 Range/Units 16:33 16:34 WBC 7.6 (4.8-10.8) X10*3/uL RBC 4.34 (4.20-5.50) X10*6/uL Hgb 13.6 (12.0-16.0) g/dl Hct 40.4 (37.0-47.0) % MCV 93.1 (80.0-98.0) fL MCH 31.3 (27.0-33.0) pg MCHC 33.7 (31.0-35.0) g/dl RDW 11.8 (11.0-16.0) % Plt Count 193 (160-400) X10*3/uL MPV 10.0 (9.4-12.3) fL Immature Gran % (Auto) 0.4 (0.0-0.4) % Neut % (Auto) 61.2 (45-73) % Lymph % (Auto) 27.5 (20-40) % [place] % (Auto) 8.8 (2-11) % Eos % (Auto) 1.6 (0-4) % Baso % (Auto) 0.5 (0-2) % Lymph # (Auto) 2.1 (1.2-4.9) X10*3/uL [place] # (Auto) 0.7 (0.1-1.2) X10*3/uL Eos # (Auto) 0.1 (0.0-0.4) X10*3/uL Baso # (Auto) 0.0 (0.0-0.2) X10*3/uL Abs Immat Gran (auto) 0.03 (0.00-0.03) X10*3/uL Absolute Neuts (auto) 4.7 (2.0-8.3) x10*3/uL Absolute Nucleated RBC 0.000 (0.0-0.012) X10*3/uL Nucleated RBC % (auto) 0.0 (0.0-0.2) /100WBC Sodium 138 (135-145) mmol/L Potassium 3.6 (3.3-5.1) mmol/L Chloride 103 (96-108) mmol/L Carbon Dioxide 28 (22-29) mmol/L Anion Gap 11 L (12-20) BUN 20 H (9-16) mg/dL Creatinine 0.77 (0.5-1.4) mg/dL Estim Creat Clear Calc 49.5 Estimated GFR > 60 Random Glucose 104 (60-115) mg/dL Calcium 8.9 D (8.4-10.2) mg/dL Magnesium 2.0 (1.6-2.6) mg/dL Total Bilirubin 0.2 (0.0-1.0) mg/dL AST 27 (5-31) U/L ALT 17 (0-31) U/L Alkaline Phosphatase 68 (39-117) U/L Troponin I High Sens 2.9 (<3.5-17.0) ng/L Total Protein 7.0 (6.5-8.0) g/dL Albumin 4.3 (3.5-5.0) g/dL TSH 0.33 Cancelled (0.32-4.0) uIU/mL Urine Color Yellow Urine Appearance Clear Urine pH 7.0 (5.0-9.0) Ur Specific [place] <= 1.005 (1.005-1.025) Urine Protein Negative (Neg-Trace) mg/dL Urine Glucose (UA) Negative (Negative) mg/dL Urine Ketones Negative (Negative) mg/dL Urine Blood Small (1+) H (Negative) Urine Nitrite Negative (Negative) Ur Leukocyte Esterase Negative (Negative) Urine RBC 0-2 (0-2) /HPF Urine WBC 0-5 (0-5) /HPF Ur Squamous Epith Cells 0-2 (0-2) /HPF Urine Bacteria None Seen (None Seen) Hyaline Casts 0-2 (0-2) /LPF Independent Interpretation I performed an independent interpretation of an: Plain X-Ray and CT Scan Interpretation: KUB notable for moderate fecal retention, specifically within proximal colon. CT head without evidence of ICH, malignancy/mass. Radiology Impression Discussion of test interpretation with radiology: I have reviewed the radiologist's reading. Radiologist Impression: 1 view abdomen Comparison: None Findings: No pneumoperitoneum or pneumatosis. No small bowel dilatation. Moderate fecal retention within the colon, Predominating within the proximal colon.. No abnormal calcifications. No acute fractures. IMPRESSION: Moderate fecal retention within the colon. Independent Historian Clinical information obtained from an independent historian. History obtained from or confirmed by: Other (son) External Record Review External record reviewed: Inpatient record, Office record and Outpatient record Prescription Management I considered prescription management with: Other Discharge Plan Discharge Clinical Impression: Chronic constipation Patient Disposition: Home, Self-Care Instructions: Constipation (DC), High Fiber Diet (ED) Additional Instructions: You were evaluated in the emergency department today for constipation, headache, fatigue. Your labs were reassuring. Your x-ray showed a moderate amount of stool in your colon and you are being prescribed medication for this. Take as prescribed. The CT scan of your head was normal. We recommend that you follow up with the ethnology teacher if your symptoms persist. We also recommend adding more fruits back into your diet, especially prunes, pears, and peaches. Your blood pressure was significantly elevated in the emergency department today, possibly due to the anxiety related to being in the emergency department. We recommend that you once again check your blood pressures at home and document your readings to discuss with your primary care provider. Follow up with your primary care provider as well. Return to the emergency department if you develop worsening pain, persistent vomiting, fever, or any other new or concerning symptoms. Prescriptions: New sennosides-docusate sodium [Senna with Docusate Sodium] 8.6-50 mg tablet 1 tab-cap PO BEDTIME Qty: 14 0RF No Action levothyroxine [Synthroid] 112 mcg tablet 112 mcg PO DAILY 90 Days Qty: 90 1RF cholecalciferol (vitamin D3) 50 mcg (2,000 unit) capsule 50 mcg PO DAILY Patient Comments: OTC cetirizine 10 mg tablet 10 mg PO DAILY PRN (Reason: allergy symptoms) 90 Days Qty: 90 3RF acetaminophen 500 mg capsule 1,000 mg PO Q6H PRN (Reason: pain) Qty: 60 0RF capsaicin [Salonpas-Hot] 0.025 % adhesive patch,medicated 1 patch topical DAILY PRN (Reason: pain) Qty: 15 0RF Rx Instructions: do not leave patch on for more than 8 hrs Referrals: [facility] [Provider Group] Print Language: Mohawk
--- NOTE | 2024-11-24 16:28 | PC.NURSE ---
Pt. refusing EKG and IV placement. Pt. states okay with drawing blood. Provider Seema barnard.
[2024-11-24 16:40] LABS: MANUAL DIFF FLAG NO
[2024-11-24 16:42] LABS: Basophils Percent Auto 0.5 % (0-2); Eosinophils Absolute Auto 0.1 X10*3/uL (0.0-0.4); Eosinophils Percent Auto 1.6 % (0-4); Hematocrit 40.4 % (37.0-47.0); Hemoglobin 13.6 g/dl (12.0-16.0); Imm Gran Abs Auto 0.03 X10*3/uL (0.00-0.03); Imm Gran Pct Auto 0.4 % (0.0-0.4); Lymphocytes Absolute Auto 2.1 X10*3/uL (1.2-4.9); Lymphocytes Percent Auto 27.5 % (20-40); Mean Corpuscular HGB Conc 33.7 g/dl (31.0-35.0); Mean Corpuscular Hemoglobin 31.3 pg (27.0-33.0); Mean Corpuscular Volume 93.1 fL (80.0-98.0); Monocytes Absolute Auto 0.7 X10*3/uL (0.1-1.2); Monocytes Percent Auto 8.8 % (2-11); Neutrophils Absolute Auto 4.7 x10*3/uL (2.0-8.3); Neutrophils Percent Auto 61.2 % (45-73); Platelet Count 193 X10*3/uL (160-400); Red Blood Count 4.34 X10*6/uL (4.20-5.50); Red Cell Distribution Width 11.8 % (11.0-16.0); White Blood Count 7.6 X10*3/uL (4.8-10.8)
[2024-11-24 16:45] LABS: Appearance Urine Clear; Color Urine Yellow; Glucose Urine UA Negative (Negative); Leukocyte Esterase Urine Negative (Negative); Nitrite Urine Negative (Negative); Specific Gravity - Urine <= 1.005 (1.005-1.025); UMIC TRIGGER UACC YES; Urine Blood Small (1+) (Negative); Urine Ketones Negative (Negative); Urine Protein Negative (Neg-Trace)
[2024-11-24 16:58] LABS: Bacteria Urine None Seen (None Seen); Hyaline Casts Urine 0-2 /LPF (0-2); RBC Urine 0-2 /HPF (0-2); Squamous Epithelial Cell Urine 0-2 /HPF (0-2); WBC Urine 0-5 /HPF (0-5)
[2024-11-24 17:02] LABS: Alanine Aminotransferase 17 U/L (0-31); Albumin Level 4.3 g/dL (3.5-5.0); Alkaline Phosphatase 68 U/L (39-117); Anion Gap 11 (12-20); Aspartate Amino Transferase 27 U/L (5-31); Bilirubin Total 0.2 mg/dL (0.0-1.0); Blood Urea Nitrogen 20 mg/dL (9-16); Calcium 8.9 mg/dL (8.4-10.2); Carbon Dioxide 28 mmol/L (22-29); Chloride 103 mmol/L (96-108); Creatinine Clr Calc Pharmacy 49.5; Estimated Glomerular Filt Rate > 60; Glucose Random 104 mg/dL (60-115); Potassium 3.6 mmol/L (3.3-5.1); Sodium 138 mmol/L (135-145); Troponin-I High Sensitivity 2.9 ng/L (<3.5-17.0)
[2024-11-24 17:16] LABS: TSH reflex Free T4 0.33 uIU/mL (0.32-4.0)
--- OUTSIDE RECORDS SUMMARY | 2024-11-24 18:18 | XMS_ITS | Clinical Summary ---
Author Organization [facility] Address [address] [place] [address] Care Team Providers Care Building Rental Manager Name Role Phone Unavailable Primary Care Provider Unavailabl e Social History Tobacco Use Types Packs/Day Years Used Date Smoking Tobacco: Never Assessed Comments Unknown Sex and Gender Information Value Date Recorded Sex Assigned at Not on file Legal Sex Female 10:32 AM EST Gender Identity Not on file Sexual Orientation Not on file Plan of Treatment Health Maintenance Due Date Last Done Comments DTaP,Tdap,and Td Vaccines (1 - Tdap) 1962 Pneumococcal Vaccine: 50+ Ye ars (1 of 1 - PCV) 1993 Zoster Vaccines (1 of 2) 1993 RSV Immunization Adult Patie nts (1 - 1-dose 75+ series) 2018 COVID-19 Vaccine ( - 2023-2 5 season) 2024 Influenza Vaccine (Season Ended) 2025 HIB Vaccines Aged Out No longer eligi ble based on patient's age to complete this topic HPV Vaccines Aged Out No longer eligi ble based on patient's age to complete this topic Hepatitis A Vaccines Aged Out No long er eligible based on patient's age to complete this topic Hepatitis B Vaccines Aged Out No long er eligible based on patient's age to complete this topic IPV Vaccines Aged Out No longer eligi ble based on patient's age to complete this topic MMR Vaccines Aged Out No longer eligi ble based on patient's age to complete this topic Meningococcal ACWY Vaccine Aged Out N o longer eligible based on patient's age to complete this topic Meningococcal B Vaccine Aged Out No l onger eligible based on patient's age to complete this topic RSV Immunization Patients Un margaux 20 months Aged Out No longer eligible b ased on patient's age to complete this topic Varicella Vaccines Aged Out No longer eligible based on patient's age to complete this topic
[2024-11-24 18:29] VITALS: BP 205/83; PULSE 82; RESP 20; TEMP 36.6; O2SAT 97
[2024-11-24 18:32] VITALS: BP 205/83; PULSE 82; RESP 20; TEMP 36.6; O2SAT 97
== END 2024-11-24 18:33 | disposition home or self-care (01) ==
PROVIDERS: Registered Nurse Emergency; Emergency Provider Emergency Medicine Emergency Medical Services
DX: K59.09 Other constipation (principal); R29.700 NIHSS score 0; E78.00 Pure hypercholesterolemia, unspecified; R51.9 Headache, unspecified; E03.9 Hypothyroidism, unspecified; R03.0 Elevated blood-pressure reading, without diagnosis of hypertension; Z79.899 Other long term (current) drug therapy
CPT/HCPCS: 36415; 70450; 74018; 80053; 81001; 83735; 84443; 84484; 85025; 99284

== ENCOUNTER → 2024-11-24 16:49 | Outpatient (BNV) | payer MEDICARE, SELFPAY | PROVIDERS: Emergency Provider Emergency Medicine Emergency Medical Services; Visit Provider Radiology Diagnostic Radiology | DX: I10 Essential (primary) hypertension (principal); R51.9 Headache, unspecified; K56.41 Fecal impaction | CPT/HCPCS: 70450; 74018 ==

== ENCOUNTER 2025-01-03 06:42 | Outpatient (REF) | payer MEDICARE, SELFPAY ==
[2025-01-03 07:02] LABS: MANUAL DIFF FLAG NO
[2025-01-03 07:32] LABS: Hematocrit 43.6 % (37.0-47.0); Hemoglobin 14.2 g/dl (12.0-16.0); Imm Gran Abs Auto 0.03 X10*3/uL (0.00-0.03); Imm Gran Pct Auto 0.4 % (0.0-0.4); Lymphocytes Absolute Auto 2.4 X10*3/uL (1.2-4.9); Mean Corpuscular HGB Conc 32.6 g/dl (31.0-35.0); Mean Corpuscular Hemoglobin 30.9 pg (27.0-33.0); Mean Corpuscular Volume 95.0 fL (80.0-98.0); NRBC Abs Auto 0.000 X10*3/uL (0.0-0.012); NRBC Pct Auto 0.0 /100WBC (0.0-0.2); Platelet Count 206 X10*3/uL (160-400); Red Blood Count 4.59 X10*6/uL (4.20-5.50); White Blood Count 6.9 X10*3/uL (4.8-10.8)
[2025-01-03 07:57] LABS: Appearance Urine Clear; Glucose Urine UA Negative (Negative); PH 6.5 (5.0-9.0); Specific Gravity - Urine 1.015 (1.005-1.025); UMIC TRIGGER UACC YES
[2025-01-03 08:09] LABS: UACC Culture Trigger YES
[2025-01-03 08:26] LABS: Alanine Aminotransferase 20 U/L (0-31); Albumin Level 4.1 g/dL (3.5-5.0); Alkaline Phosphatase 68 U/L (39-117); Anion Gap 10 (12-20); Aspartate Amino Transferase 26 U/L (5-31); Blood Urea Nitrogen 16 mg/dL (9-16); Calcium 8.8 mg/dL (8.4-10.2); Carbon Dioxide 30 mmol/L (22-29); Chloride 108 mmol/L (96-108); Cholesterol 231 mg/dL (<200); Estimated Glomerular Filt Rate > 60; HDL Cholesterol 64 mg/dL (>40); Potassium 4.1 mmol/L (3.3-5.1); Sodium 144 mmol/L (135-145); Total Protein 7.0 g/dL (6.5-8.0); Triglycerides 61 mg/dL (<150)
[2025-01-03 08:46] LABS: Free T4 (Free Thyroxine) 1.28 ng/dL (0.71-1.85); Thyroid Stimulating Hormone 0.87 uIU/mL (0.32-4.0)
== END 2025-01-03 06:43 | disposition home or self-care (01) ==
LOC: HO.LAB 06:42
PROVIDERS: PCP Internal Medicine; Visit Provider Internal Medicine
DX: R30.0 Dysuria (principal); E78.00 Pure hypercholesterolemia, unspecified; E03.9 Hypothyroidism, unspecified; D64.9 Anemia, unspecified; E55.9 Vitamin D deficiency, unspecified
CPT/HCPCS: 36415; 80053; 80061; 81001; 82306; 84439; 84443; 85025; 87086

== ENCOUNTER 2025-01-12 14:00 | Outpatient (AMB) | payer MEDICARE, SELFPAY ==
[2025-01-12 14:01] VITALS: BP 176/80; PULSE 89; RESP 18; O2SAT 95; BMI 24.2
--- NOTE | 2025-01-12 14:01 | MHC.PC.OV ---
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 Accompanied by: Self / Same As Patient Allergies codeine (CODEINE) Adverse Reaction (Intermediate, Verified 01/30/25 22:16) NAUSEA & VOMITING Medication List - Last Reconciled 01/30/25 by ARI Argueta acetaminophen 1,000 mg (2 x 500 mg) PO Q6H PRN capsaicin 0.025% (Salonpas-Hot) 1 patch topical DAILY PRN cetirizine 10 mg PO DAILY PRN 90 days cholecalciferol (vitamin D3) 50 mcg PO DAILY lisinopril 2.5 mg PO DAILY sennosides-docusate sodium 8.6-50 mg (Senna with Docusate Sodium) 1 tab-cap PO BEDTIME Synthroid (levothyroxine) 112 mcg PO DAILY 90 days NS Tobacco use date assessed: 01/12/25 Fall risk assessment: No Falls in past year Dental Screening Dental Screen Date: 01/12/25 Did you have a dental visit in the last 12 months?: Yes Did you have a dental problem in the last 6 months where you did not have access to dental care?: No Was dental information given to patient?: Patient has dentist HPI hyperlipidemia, hypothyroidism HPI Details The patient is an 79-year-old female presenting with elevated blood pressure. She has a history of hypertension that is suspected to be White Coat Syndrome, bp is 176/80 and her usual systolic 128 mmHg at home. The patient monitors her blood pressure at home using a [employer]-manufactured device, per patient. The patient also reports hypercholesterolemia, with recent lab results indicating an increase to 155 mg/dL from a previous level of 124 mg/dL. She attributes this change to dietary habits at her long-term facility, where meals are prepared with butter, deviating from her previous Mediterranean diet. The patient has a history of allergic rhinitis, which was exacerbated by environmental factors, leading to symptoms such as nasal congestion and crusting. She was previously prescribed medication for this condition, which she discontinued due to adverse effects. The patient has been diagnosed with hypothyroidism and is on Synthroid, which she takes regularly every morning. Her thyroid function tests are within normal limits, indicating good control of the condition. 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 Mother No problems noted. Social History Housing: House Alcohol intake: never Patient Tobacco Use Status: Never used Tobacco e-Cigarette/Vaping Use: Never Used Second Hand Smoke Exposure: No service: No Current occupational status: retired Cognitive needs: No Hearing needs: No Vision needs: Yes Questionnaire PHQ-9 Over the last 2 weeks, how often have you been bothered by any of the following problems? 1. Little interest or pleasure in doing things: not at all 2. Feeling down, depressed, or hopeless: not at all 3. Trouble falling or staying asleep, or sleeping too much: not at all 4. Feeling tired or having little energy: not at all 5. Poor appetite or overeating: not at all 6. Feeling bad about yourself - or that you are a failure or have let yourself or your family down: not at all 7. Trouble concentrating on things, such as reading the newspaper or watching television: not at all 8. Moving or speaking so slowly that other people could have noticed. Or the opposite - being so fidgety or restless that you have been moving around a lot more than usual: not at all 9. Thoughts that you would be better off or of hurting yourself in some way: not at all Total score: 0 Depression Screening Interpretation: Negative Depression Screening Done: Yes 91806 - PHQ-9 Billing: Yes Source: Developed by Drs. Arnoldo Snider, Kera Alonzo, Marcus Mullen and colleagues, with an educational maryam from [employer]. Thrive Questionnaire Date Thrive assessed: 01/12/25 I am a: Patient What is your living situation today?: I have a steady place to live Within the past 12 months, did the food you bought not last and you didn't have the money to get more?: Never true Within the past 12 months, did you worry whether your food would run out before you got money to buy more?: Never true Do you have trouble paying for medicines?: No Do you have trouble getting transportation to medical appointments?: No Do you have trouble paying your heating and electricity bill?: No Do you have trouble taking care of your child, family member or friend?: No Do you have trouble with day-to-day activities such as bathing, preparing meals, shopping, managing finances, etc.?: No Are you currently unemployed and looking for a job?: No Are you interested in more education?: No Please select the resources that you would like help with: None Currently or been in a relationship where the following occur: I choose not to answer THRIVE Score: 0 AUDIT C Alcohol Use Questionnaire (AUDIT-C) 1. How often do you have a drink containing alcohol?: Never 3. How often do you have six or more drinks on one occasion?: Never Total Score: 0 Score Reviewed/Action Taken: Yes QUINTIN-7 AMB Questionnaire QUINTIN-7 Date QUINTIN - 7 assessed: 01/12/25 Feeling nervous, anxious, or on edge: 0 = Not at all Not being able to stop or control worryin = Not at all Worrying too much about different things: 0 = Not at all Trouble relaxin = Not at all Being so restless that it is hard to sit still: 0 = Not at all Becoming easily annoyed or irritable: 0 = Not at all Feeling afraid as if something awful might happen: 0 = Not at all Total QUINTIN-7 score (0-4 normal; 5-9 mild; 10-14 moderate; 15-21 severe): 0 Source: Developed by Drs. Arnoldo Snider, Kera Alonzo, Marcus Mullen and colleagues, with an educational maryam from [employer]. QUINTIN-7 Assessment Billing QUINTIN-7 Assessment Tool: QUINTIN-7 Assessment 58868 Review of Systems Const Denies body aches, Denies chills, Denies fever(s), Denies headache(s) and Denies poor appetite Eyes Reports no additional complaints ENT Denies dysphagia, Denies dizziness, Denies headache(s), Reports nasal congestion (on and off) and Denies odynophagia Card Denies chest pain, Denies syncope, Denies edema, Denies irregular heart rhythm, Denies lightheadedness and Denies dyspnea Resp Denies cough and Denies dyspnea GI Denies abdominal pain, Denies constipation, Denies dysphagia, Denies diarrhea, Denies nausea, Denies odynophagia and Denies vomiting Reports no additional complaints Musc Reports no additional complaints and Denies abnormal gait Skin/Breast Reports system reviewed and no additional complaints, except as documented Neuro Denies abnormal gait, Denies dizziness, Denies syncope and Denies headache(s) Psych Reports no additional complaints Physical exam (Primary Care) Vital Signs: Last Vital Signs Pulse 89 01/12/25 14:01 Resp 18 01/12/25 14:01 BP 176/80 H 01/12/25 14:01 Pulse Ox 95 01/12/25 14:01 Oxygen Delivery Method Room Air 01/12/25 14:01 BMI result Body Mass Index 24.2 Tobacco/Smoking Status: Tobacco use Status Tobacco use date assessed 01/12/25 01/12/25 14:06 Patient Tobacco Use Status Never used Tobacco 01/12/25 14:06 e-Cigarette/Vaping Use Never Used 01/12/25 14:06 PHQ-9: PHQ-9 Score PHQ-9: Total score 0 01/12/25 14:30 Depression Screening Interpretation: Negative Thrive Assessment: Date of Thrive Assessment Date Thrive assessed 01/12/25 01/12/25 14:06 Currently or been in a relationship where the following occur: I choose not to answer Const General: cooperative, healthy appearing, comfortable and no acute distress Orientation/consciousness: patient oriented x3 HENMT Head: Yes normocephalic Ears: hearing grossly normal bilaterally General nose exam: Abnormal mucous membranes and turbinates present erythematous Throat: Yes posterior oropharynx normal Eyes General: appearance normal, both eyes and all related structures Conjunctivae: conjunctivae normal Neck Neck: Yes full ROM and Yes no lymphadenopathy Resp Effort & Inspection: normal respiratory effort Auscultation: clear to auscultation bilaterally, no crackles, no rales, no rhonchi and no wheezes Cardio Rate: regular rate Rhythm: regular rhythm Skin General skin exam: no rashes or lesions noted Neuro General: patient oriented x3 Gait exam (Neuro): Normal gait present Extrem General: Yes normal to inspection, Yes full ROM and No edema Psych Affect: normal affect Attitude: cooperative Insight: Good insight present (Psych) Judgement: Good judgement present (Psych) Results Reviewed Results Reviewed: Laboratory Tests 01/03/25 01/03/25 06:57 07:00 WBC 6.9 RBC 4.59 Hgb 14.2 Hct 43.6 MCV 95.0 MCH 30.9 MCHC 32.6 RDW 11.9 Plt Count 206 MPV 9.9 Sodium 144 Potassium 4.1 Chloride 108 Carbon Dioxide 30 H Anion Gap 10 L BUN 16 Creatinine 0.72 Estimated GFR > 60 Fasting Glucose 88 Calcium 8.8 Total Bilirubin 0.4 AST 26 ALT 20 Alkaline Phosphatase 68 Total Protein 7.0 Albumin 4.1 Triglycerides 61 Cholesterol 231 H LDL Cholesterol, Calc 155 H HDL Cholesterol 64 25-OH Vitamin D Total 35.5 TSH 0.87 Free T4 1.28 Urine Color Yellow Urine Appearance Clear Urine pH 6.5 Ur Specific [place] 1.015 Urine Protein Negative Urine Glucose (UA) Negative Urine Blood Moderate (2+) H Urine Nitrite Negative Ur Leukocyte Esterase Small (1+) H Urine RBC 3-5 H Urine WBC 0-5 Ur Squamous Epith Cells 0-2 Urine Bacteria None Seen Hyaline Casts 0-2 Coding Level of Care Code Est Pt Level 3 (74179) Diagnoses Multiple allergies Z88.9 Anxiety F41.9 White coat syndrome without hypertension R03.0 Pure hypercholesterolemia E78.00 Acquired hypothyroidism E03.9 Overweight (BMI 25.0-29.9) E66.3 Vitamin D deficiency E55.9 Allergic rhinitis, unspecified seasonality, unspecified trigger J30.9 Allergic rhinitis trigger: unspecified Allergic rhinitis seasonality: unspecified Additional Codes PHQ-9 - 39576 - PHQ-9 Billing: Yes ([id number]) QUINTIN-7 Assessment Billing - QUITNIN-7 Assessment Tool: QUINTIN-7 Assessment 24933 ([id number]) Time Spent (min) 37 Assessment & Plan Assessment & Plan (1) Multiple allergies: Code(s): Z88.9 - Allergy status to unspecified drugs, medicaments and biological substances Category: Medical Plan: Limit exposure to allergens Air purifiers and dust filters Air conditioner in house, especially where sleeping (2) Anxiety: Code(s): F41.9 - Anxiety disorder, unspecified Category: Medical Plan: Encouraged CBT (3) 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 Assured the patient that her care is still managed by Dr. Del Castillo and that he was just unable to see her today, but will next time. She still remained suspicious. Will start the patient on a low dose of lisinopril 2.5mg and have return in 4 weeks to get her blood pressure checked by nurse to see if this makes any difference. Reinforced low salt diet. (4) Pure hypercholesterolemia: Code(s): E78.00 - Pure hypercholesterolemia, unspecified Category: Medical Plan: Triglycerides 61, total cholesterol 231, LDL 151 and HDL 64 Discussed lifestyle modifications including dietary changes and physical activity (5) Acquired hypothyroidism: Code(s): E03.9 - Hypothyroidism, unspecified Category: Medical Plan: euthyroid, continue levothyroxine 112 mcg daily (6) Overweight (BMI 25.0-29.9): Code(s): E66.3 - Overweight Category: Medical Plan: Encouraged to exercise for at least 20- 30 minutes a day/5 days a week Healthy eating discussed. Encouraged to eat fruits/vegetables, protein-fish/baked chicken, and to avoid salty/fried foods, sweets, caffeine and carbohydrates. Encouraged to increase water intake 6-8 glasses a day (7) Vitamin D deficiency: Code(s): E55.9 - Vitamin D deficiency, unspecified Category: Medical Plan: Continue cholecalciferol 50 mcg daily (8) Allergic rhinitis: Code(s): J30.9 - Allergic rhinitis, unspecified Category: Medical Qualifiers: Allergic rhinitis trigger: unspecified Allergic rhinitis seasonality: unspecified Qualified Code(s): J30.9 - Allergic rhinitis, unspecified Plan: Limit exposure to allergens Air purifiers and dust filters Air conditioner in house, especially where sleeping Continue cetirizine 10 mg daily p.r.n. Orders: Orders Comprehensive Stanton. Panel Fast 6 Months Z88.9 - Allergy status to unspecified drugs, medicaments and biological substances, F41.9 - Anxiety disorder, unspecified, E78.00 - Pure hypercholesterolemia, unspecified, E03.9 - Hypothyroidism, unspecified, E66.3 - Overweight, E55.9 - Vitamin D deficiency, unspecified, J30.9 - Allergic rhinitis, unspecified Lipid Panel 6 Months Z88.9 - Allergy status to unspecified drugs, medicaments and biological substances, F41.9 - Anxiety disorder, unspecified, E78.00 - Pure hypercholesterolemia, unspecified, E03.9 - Hypothyroidism, unspecified, E66.3 - Overweight, E55.9 - Vitamin D deficiency, unspecified, J30.9 - Allergic rhinitis, unspecified TSH reflex Free T4 6 Months Z88.9 - Allergy status to unspecified drugs, medicaments and biological substances, F41.9 - Anxiety disorder, unspecified, E78.00 - Pure hypercholesterolemia, unspecified, E03.9 - Hypothyroidism, unspecified, E66.3 - Overweight, E55.9 - Vitamin D deficiency, unspecified, J30.9 - Allergic rhinitis, unspecified Vitamin D 25-OH Total 6 Months Z88.9 - Allergy status to unspecified drugs, medicaments and biological substances, F41.9 - Anxiety disorder, unspecified, E78.00 - Pure hypercholesterolemia, unspecified, E03.9 - Hypothyroidism, unspecified, E66.3 - Overweight, E55.9 - Vitamin D deficiency, unspecified, J30.9 - Allergic rhinitis, unspecified Complete Blood Count Auto Diff 6 Months Z88.9 - Allergy status to unspecified drugs, medicaments and biological substances, F41.9 - Anxiety disorder, unspecified, E78.00 - Pure hypercholesterolemia, unspecified, E03.9 - Hypothyroidism, unspecified, E66.3 - Overweight, E55.9 - Vitamin D deficiency, unspecified, J30.9 - Allergic rhinitis, unspecified UA CC w/rflx Micro + Cult 6 Months Z88.9 - Allergy status to unspecified drugs, medicaments and biological substances, F41.9 - Anxiety disorder, unspecified, E78.00 - Pure hypercholesterolemia, unspecified, E03.9 - Hypothyroidism, unspecified, E66.3 - Overweight, E55.9 - Vitamin D deficiency, unspecified, J30.9 - Allergic rhinitis, unspecified Medications: New lisinopril 2.5 mg PO DAILY 30 tabs 3RF
== END 2025-01-12 14:53 | disposition home or self-care (01) ==
PROVIDERS: PCP Internal Medicine
DX: Z88.9 Allergy status to unspecified drugs, medicaments and biological substances (principal); F41.9 Anxiety disorder, unspecified; R03.0 Elevated blood-pressure reading, without diagnosis of hypertension; E78.00 Pure hypercholesterolemia, unspecified; E03.9 Hypothyroidism, unspecified; E66.3 Overweight; E55.9 Vitamin D deficiency, unspecified; J30.9 Allergic rhinitis, unspecified

== ENCOUNTER → 2025-01-12 14:00 | Outpatient (BNVA) | payer MEDICARE, SELFPAY | PROVIDERS: PCP Internal Medicine | DX: F41.1 Generalized anxiety disorder (principal); R03.0 Elevated blood-pressure reading, without diagnosis of hypertension; E78.00 Pure hypercholesterolemia, unspecified; E03.9 Hypothyroidism, unspecified; Z88.9 Allergy status to unspecified drugs, medicaments and biological substances; E66.3 Overweight; Z68.24 Body mass index [BMI] 24.0-24.9, adult; E55.9 Vitamin D deficiency, unspecified; J30.9 Allergic rhinitis, unspecified; Z71.3 Dietary counseling and surveillance | CPT/HCPCS: 96127; 99212 ==